=== PATIENT | female | born 1985 | race Caucasian/White ===

== ENCOUNTER 2021-03-11 16:39 | Emergency (ER) | payer OTHER ==
[2021-03-11] MEDS ORDERED: Sodium Chloride 0.9% 1000 ML 1,000 ML IV STA (18:21)
[2021-03-11] MEDS ORDERED: TYLENOL 325 MG PO ONE (18:21)
[2021-03-11] MEDS ORDERED: Zofran 4 MG/2 ML VIAL IV ONE (18:21)
[2021-03-11 18:59] LABS: Hematocrit 42.7 % (35-47); Mean Cell Volume 89.5 fl (78-100); Mean Corpuscular Hemoglobin 29.4 pg (26-32); Mean Corpuscular Hgb Concent. 32.8 g/dl (32-36); Mean Platelet Volume 10.1 fl (7.5-11.0); Platelet Count 281 K/mm3 (150-450); Red Blood Count 4.77 M/mm3 (4.1-5.4); Red Cell Distribution Width 13.4 % (11.5-14.0); White Blood Count 7.8 K/mm3 (4.0-10.5)
[2021-03-11 19:07] LABS: BASOPHIL % 0.5 % (0.0-0.4); Basophil (Absolute #) 0.04 (0-0.4); Eosinophil % 1.8 % (0.00-5.0); Eosinophil (Absolute #) 0.14 (0-0.5); Lymphocyte (Absolute #) 2.17 (1.0-4.6); Monocytes % 6.5 % (0.0-12.0); Neutrophil % 63.2 % (36.0-66.0)
[2021-03-11] MEDS ORDERED: Zofran 4 MG/2 ML VIAL ONE (19:12)
[2021-03-11] MEDS ORDERED: Sodium Chloride 0.9% 1000 ML 1,000 ML ONE (19:13)
[2021-03-11] MEDS ORDERED: TYLENOL 325 MG ONE (19:13)
--- NOTE | 2021-03-11 19:43 | ERPHSYRPT ---
- History of Present Illness Time Seen by Provider: 03/11/21 17:40 Source: patient Exam Limitations: no limitations Patient Subjective Stated Complaint: pt here for not feeling well today with n/v Triage Nursing Assessment: pt alert, resp easy, skin w/d/p. face mask in place, she is able to eat today and drink, abd soft, Physician History: Patient is a 35-year-old female presents to our ED with feeling unwell starting today. 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 Patient states the daughter of a sports management professor tested positive for Covid. In this regard patient believes she may have been exposed to Covid. Patient feels weak. She admits to nausea and vomiting. She denies pain. No diarrhea. No rash. No fever. No shortness of breath. Symptoms are constant. Symptoms are moderate in intensity. No specific worsening improving factors. Patient voices no other complaints or concerns at this time. Timing/Duration: today Severity: moderate Modifying Factors: Improves With: nothing Associated Symptoms: nausea, vomiting Allergies/Adverse Reactions: No Known Drug Allergies Allergy (Unverified 03/11/21 17:32) Home Medications: Empagliflozin [Jardiance] 10 mg PO DAILY 03/11/21 [History] Metformin HCl [Metformin ER Gastric] 1 ea DAILY 03/11/21 [History] Norgestimate-Ethinyl Estradiol [Sprintec 28 Day Tablet] 1 ea DAILY 03/11/21 [History] Simvastatin 1 ea DAILY 03/11/21 [History] Venlafaxine HCl ER 75 mg [Effexor XR 75 MG] 1 ea DAILY 03/11/21 [History] Hx Tetanus, Diphtheria Vaccination/Date Given: No Hx Influenza Vaccination/Date Given: No Hx Pneumococcal Vaccination/Date Given: No Immunizations Up to Date: Yes Travel Risk - International Travel Have you traveled outside of the country in past 3 weeks: No - Coronavirus Screening Are you exhibiting any of the following symptoms?: Yes Symptoms: Vomiting/Diarrhea, Headaches/Body Aches/Fatigue Close contact with a COVID-19 positive Pt in past 14-21 Days: No - Vaccine Status Have you recieved a Covid-19 vaccination: No - Review of Systems Constitutional: No Symptoms, No Fever, No Chills Eyes: No Symptoms Ears, Nose, & Throat: No Symptoms Respiratory: No Symptoms, No Cough, No Dyspnea Cardiac: No Symptoms, No Chest Pain, No Edema, No Syncope Abdominal/Gastrointestinal: No Symptoms, No Abdominal Pain, No Nausea, No Vomiting, No Diarrhea Genitourinary Symptoms: No Symptoms, No Dysuria Musculoskeletal: No Symptoms, No Back Pain, No Neck Pain Skin: No Symptoms, No Rash Neurological: No Symptoms, No Dizziness, No Focal Weakness, No Sensory Changes Psychological: No Symptoms Endocrine: No Symptoms Hematologic/Lymphatic: No Symptoms Immunological/Allergic: No Symptoms All Other Systems: Reviewed and Negative - Social History Smoking Status: Current every day smoker Exposure to second hand smoke: No Patient Lives Alone: No - Female History Hx Last Menstrual Period: feb Hx Now: No - Nursing Vital Signs Nursing Vital Signs: Initial Vital Signs Temperature 97.0 F 03/11/21 17:29 Pulse Rate 83 03/11/21 17:29 Respiratory Rate 18 03/11/21 17:29 Blood Pressure 112/86 03/11/21 17:29 O2 Sat by Pulse Oximetry 96 03/11/21 17:29 Pain Scale Pain Intensity 4 - Physical Exam General Appearance: no apparent distress, alert Eye Exam: PERRL/EOMI, eyes nml inspection Ears, Nose, Throat Exam: normal ENT inspection, TMs normal, pharynx normal, moist mucous membranes Neck Exam: normal inspection, non-tender, supple, full range of motion Respiratory Exam: normal breath sounds, lungs clear, airway intact, No respiratory distress Cardiovascular Exam: regular rate/rhythm, normal heart sounds, normal peripheral pulses Gastrointestinal/Abdomen Exam: soft, normal bowel sounds, No tenderness, No mass Back Exam: normal inspection, normal range of motion, No CVA tenderness, No vertebral tenderness Extremity Exam: normal inspection, normal range of motion, pelvis stable Neurologic Exam: alert, oriented x 3, cooperative, normal mood/affect, nml ce rebellar function, nml station & gait, sensation nml, No motor deficits Skin Exam: normal color, warm, dry, No rash Lymphatic Exam: No adenopathy SpO2 Interpretation: normal SpO2: 96 O2 Delivery: Room Air - Course Nursing assessment & vital signs reviewed: Yes Ordered Tests: Active Orders 24 hr Category Date Time Status IV Insertion STAT Care 03/11/21 18:21 Active CBC W DIFF Stat Lab 03/11/21 18:50 Completed CMP Stat Lab 03/11/21 18:50 Received LIPASE Stat Lab 03/11/21 18:50 Received TROPONIN Q3H Lab 03/11/21 18:50 Received TROPONIN Q3H Lab 03/11/21 21:30 Ordered TROPONIN Q3H Lab 03/12/21 00:30 Ordered TROPONIN Q3H Lab 03/12/21 03:30 Ordered TROPONIN Q3H Lab 03/12/21 06:30 Ordered UA W/RFX UR CULTURE Stat Lab 03/11/21 18:53 Ordered Medication Summary Discontinued Medications Generic Name Dose Route Start Last Admin Trade Name Tru PRN Reason Stop Dose Admin Acetaminophen 975 mg 03/11/21 18:21 03/11/21 19:18 Tylenol 325 Mg PO 03/11/21 18:22 975 mg STAT ONE Administration Acetaminophen Confirm 03/11/21 19:13 Tylenol 325 Mg Administered 03/11/21 19:14 Dose 975 mg .ROUTE .STK-MED ONE Sodium Chloride 1,000 mls @ 999 mls/hr 03/11/21 18:21 03/11/21 19:16 Sodium Chloride 0.9% 1000 Ml IV 03/11/21 19:21 999 mls/hr .Q1H1M STA Administration Sodium Chloride Confirm 03/11/21 19:13 Sodium Chloride 0.9% 1000 Ml Administered 03/11/21 19:14 Dose 1,000 mls @ ud .ROUTE .STK-MED ONE Ondansetron HCl 4 mg 03/11/21 18:21 03/11/21 19:19 Zofran 4 Mg/2 Ml Vial IV 03/11/21 18:22 4 mg STAT ONE Administration Ondansetron HCl Confirm 03/11/21 19:12 Zofran 4 Mg/2 Ml Vial Administered 03/11/21 19:13 Dose 4 mg .ROUTE .STK-MED ONE Lab/Rad Data: Laboratory Result Diagrams 03/11/21 18:50 Laboratory Results 03/11/21 Range/Units 18:50 WBC 7.8 (4.0-10.5) K/mm3 RBC 4.77 (4.1-5.4) M/mm3 Hgb 14.0 (12.0-16.0) gm/dl Hct 42.7 (35-47) % MCV 89.5 (78-100) fl MCH 29.4 (26-32) pg MCHC 32.8 (32-36) g/dl RDW 13.4 (11.5-14.0) % Plt Count 281 (150-450) K/mm3 MPV 10.1 (7.5-11.0) fl Gran % 63.2 (36.0-66.0) % Eos # (Auto) 0.14 (0-0.5) Absolute Lymphs (auto) 2.17 (1.0-4.6) Absolute Monos (auto) 0.50 (0.0-1.3) Total Counted Cancelled Lymphocytes % 28.0 (24.0-44.0) % Monocytes % 6.5 (0.0-12.0) % Eosinophils % 1.8 (0.00-5.0) % Basophils % 0.5 (0.0-0.4) % Absolute Granulocytes 4.90 (1.4-6.9) Absolute Neutrophils Cancelled Segmented Neutrophils Cancelled Band Neutrophils Cancelled Lymphocytes (Manual) Cancelled Monocytes (Manual) Cancelled Eosinophils (Manual) Cancelled Basophils (Manual) Cancelled Basophils # 0.04 (0-0.4) Metamyelocytes Cancelled Myelocytes Cancelled Promyelocytes Cancelled Nucleated RBCs Cancelled Hypersegmented Polys Cancelled Atypical Lymphocytes Cancelled Blast Cells Cancelled Plasma Cells Cancelled Other Cell Type Cancelled Hypochromia Cancelled Toxic Granulation Cancelled Dohle Bodies Cancelled Eyal Rods Cancelled Platelet Estimate Cancelled RBC Morphology Cancelled Polychromasia Cancelled Poikilocytosis Cancelled Basophilic Stippling Cancelled Anisocytosis Cancelled Microcytosis Cancelled Macrocytosis Cancelled Spherocytes Cancelled Sickle Cells Cancelled Target Cells Cancelled Tear Drop Cells Cancelled Ovalocytes Cancelled Stomatocytes Cancelled Helmet Cells Cancelled [place] Bodies Cancelled [place] Rings Cancelled Tory Cells Cancelled Acanthocytes (Spur) Cancelled Rouleaux Cancelled Schistocytes Cancelled Morphology Comment Cancelled - Progress Progress: improved Progress Note: Patient reassessed. She feels much better. CBC within normal limits. Lipase within normal limits. Patient no longer nauseous. Patient states she is ready for discharge. No imaging studies indicated during this visit. Patient tolerated p.o. Portions of this note were created with voice recognition technology. There may be grammatical, spelling, punctuation or sound alike errors 03/11/21 19:44 03/11/21 19:46 Outpatient Covid test ordered. Counseled pt/family regarding: lab results, diagnosis, need for follow-up - Departure Departure Disposition: Home Clinical Impression: Nausea and vomiting, Exposure to COVID-19 virus Condition: Stable Critical Care Time: No Referrals: DOCTOR,NO FAMILY [Primary Care Provider] - FELISHA GALLOWAY MD [ACTIVE STAFF] - Additional Instructions: Discharge/Care Plan LANETTE GARZA was seen on 03/11/21 in the Emergency Room. The patient was counseled regarding Diagnosis,Lab results, Imaging studies, need for follow up and when to return to the Emergency Room. Prescriptions given: Discharge Note I have spoken with the patient and/or caregivers. I have explained the patient's condition, diagnosis and treatment plan based on the information available to me at this time. I have answered the patient's and/or caregiver's questions and addressed any concerns. The patient and/or caregivers have as good understanding of the patient's diagnosis, condition and treatment plan as can be expected at this point. The vital signs have been stable. The patient's condition is stable and appropriate for discharge from the emergency department. The patient will pursue further outpatient evaluation with the primary care physician or other designated or consulting physician as outlined in the discharge instructions. The patient and/or caregivers are agreeable to this plan of care and follow-up instructions have been explained in detail. The patient and/or caregivers have received these instruction. The patient/and or caregivers are aware that any significant change in condition or worsening of symptoms should prompt an immediate return to this or the closest emergency department or call 911.
[2021-03-11 19:44] LABS: ALBUMIN 4.1 g/dL (3.5-5.0); ALKALINE PHOSPHATASE 73 U/L (38-126); ANION GAP 15.2 MEQ/L (5-15); BLOOD UREA NITROGEN 24 mg/dL (7-17); CHLORIDE 103 mmol/L (98-107); Calcium 8.8 mg/dL (8.4-10.2); Carbon Dioxide 26 mmol/L (22-30); EST GLOMERULAR FILTRATION RATE > 60.0 ML/MIN; Glucose 143 mg/dL (74-106); LIPASE 44 U/L (23-300); SGOT/AST 21 U/L (14-36); SGPT/ALT 23 U/L (0-35); SODIUM 140 mmol/L (137-145)
[2021-03-11 20:01] LABS: Appearance SLIGHTLY CLOUDY (CLEAR); Bilirubin NEGATIVE (NEGATIVE); Blood NEGATIVE Ery/ul (0-5); Epithelial Cells FEW /HPF (FEW); Glucose >=500 mg/dL (NEGATIVE); Ketones NEGATIVE (NEGATIVE); Leukocyte Esterase MODERATE (NEGATIVE); Nitrite NEGATIVE (NEGATIVE); Protein,Urine Dip NEGATIVE (Negative); RBC 0-2 /HPF (0-2); Specific Gravity 1.032 (1.005-1.025); Urobilinogen NEGATIVE mg/dL (0-1)
[2021-03-11 20:06] LABS: Bacteria NONE SEEN /HPF (NEGATIVE)
[2021-03-11 20:13] VITALS: BP 105/59; PULSE 95
[2021-03-11 22:56] VITALS: O2SAT 96
== END 2021-03-11 20:32 | disposition home or self-care (01) ==
LOC: ED 16:39
DX: R11.2 Nausea with vomiting, unspecified (principal); Z20.822 Contact with and (suspected) exposure to COVID-19
CPT/HCPCS: 36000; 36415; 80053; 81001; 83690; 84484; 85025; 96374; 99284; U0003; J2405; A9270-GY

== ENCOUNTER 2021-06-10 07:36 | Emergency (ER) | payer OTHER ==
[2021-06-10] MEDS ORDERED: Sodium Chloride 0.9% 1000 ML 1,000 ML IV STA (07:57)
[2021-06-10] MEDS ORDERED: Adacel Vial IM ONE ×2 (07:58→08:37)
[2021-06-10 08:11] VITALS: O2SAT 98
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
[2021-06-10 09:25] VITALS: BP 112/82; PULSE 78
== END 2021-06-10 09:26 | disposition home or self-care (01) ==
LOC: ED 07:36
DX: S01.03XA Puncture wound without foreign body of scalp, initial encounter (principal); V48.5XXA Car driver injured in noncollision transport accident in traffic accident, initial encounter; R51.9 Headache, unspecified; Z79.84 Long term (current) use of oral hypoglycemic drugs; Z72.0 Tobacco use; Z79.899 Other long term (current) drug therapy
CPT/HCPCS: 70450; 71045; 72125; 90471; 90715; 99285

== ENCOUNTER 2021-07-28 12:31 | Emergency (ER) | payer OTHER ==
[2021-07-28] MEDS ORDERED: Zofran 4 MG/2 ML VIAL IV ONE (12:51)
--- NOTE | 2021-07-28 12:51 | ERPHSYRPT ---
- History of Present Illness Time Seen by Provider: 07/28/21 12:46 Historian: patient Exam Limitations: no limitations Physician History: This is an overweight 35-year-old white female who presents with 1 week history of intermittent abdominal pain with associated nausea. Patient is an amh-upzmblz-txqwzwztr diabetic. She has tried to modify her diet to remove fatty greasy spicy foods and it may have helped a little bit. Her pain is in the mid abdomen and it is bilateral. It does not radiate anywhere else. She has no urinary symptoms. She is had no abnormal vaginal discharge. She has taken tests and they are negative. She has not had vomiting or diarrhea. She has no shortness of breath. She has no chest pain. Her only abdominal surgery was that of a section. Timing/Duration: week(s) (1) Quality: aching, cramping Abdominal Pain Onset Location: other (Mid abdomen bilateral) Pain Radiation: no radiation Severity of Pain-Max: moderate Severity of Pain-Current: mild Modifying Factors: Improves With: nothing Associated Symptoms: nausea, No chest pain, No shortness of breath, No vomiting Previous symptoms: same symptoms as today Allergies/Adverse Reactions: nickel Allergy (Verified 07/28/21 12:51) Home Medications: Metformin HCl [Metformin ER Gastric] 1 ea PO BID 03/11/21 [History] Hx Tetanus, Diphtheria Vaccination/Date Given: No Hx Influenza Vaccination/Date Given: No Hx Pneumococcal Vaccination/Date Given: No Travel Risk - International Travel Have you traveled outside of the country in past 3 weeks: No - Coronavirus Screening Are you exhibiting any of the following symptoms?: No Close contact with a COVID-19 positive Pt in past 14-21 Days: No - Vaccine Status Have you recieved a Covid-19 vaccination: No - Review of Systems Constitutional: No Symptoms Eyes: No Symptoms Ears, Nose, & Throat: No Symptoms Respiratory: No Symptoms Cardiac: No Symptoms Abdominal/Gastrointestinal: Abdominal Pain, Nausea, No Vomiting, No Diarrhea, No Constipation Genitourinary Symptoms: No Symptoms Musculoskeletal: No Symptoms Skin: No Symptoms Neurological: No Symptoms Psychological: No Symptoms Endocrine: No Symptoms Hematologic/Lymphatic: No Symptoms Immunological/Allergic: No Symptoms All Other Systems: Reviewed and Negative - Past Medical History Pertinent Past Medical History: No Neurological History: No Pertinent History ENT History: No Pertinent History Cardiac History: No Pertinent History Respiratory History: No Pertinent History Endocrine Medical History: No Pertinent History Musculoskeletal History: No Pertinent History GI Medical History: No Pertinent History History: No Pertinent History Psycho-Social History: No Pertinent History Female Reproductive Disorders: No Pertinent History - Past Surgical History Past Surgical History: No Neuro Surgical History: No Pertinent History Cardiac: No Pertinent History Respiratory: No Pertinent History Gastrointestinal: No Pertinent History Genitourinary: No Pertinent History Musculoskeletal: No Pertinent History Female Surgical History: No Pertinent History - Social History Smoking Status: Current every day smoker How long have you smoked: 1 Exposure to second hand smoke: No Drug Use: none Patient Lives Alone: No - Nursing Vital Signs Nursing Vital Signs: Initial Vital Signs Temperature 97.3 F 07/28/21 12:37 Pulse Rate 71 07/28/21 12:37 Blood Pressure 144/90 07/28/21 12:37 O2 Sat by Pulse Oximetry 97 07/28/21 12:37 Pain Scale Pain Intensity 5 - Physical Exam General Appearance: no apparent distress, alert, anxiety Eye Exam: PERRL/EOMI, eyes nml inspection Ears, Nose, Throat Exam: normal ENT inspection, moist mucous membranes Neck Exam: normal inspection, non-tender, supple, full range of motion Respiratory Exam: normal breath sounds, lungs clear, airway intact, No chest tenderness, No respiratory distress Cardiovascular Exam: regular rate/rhythm, normal heart sounds, normal peripheral pulses Gastrointestinal/Abdomen Exam: soft, normal bowel sounds, tenderness (Bilateral mid abdomen), guarding, No rebound Pelvic Exam: not done Rectal Exam: not done Back Exam: normal inspection, normal range of motion, No CVA tenderness, No vertebral tenderness Extremity Exam: normal inspection, normal range of motion, pelvis stable Neurologic Exam: alert, oriented x 3, cooperative, feeder tender II-XII nml as tested, normal mood/affect, nml cerebellar function, nml station & gait, sensation nml Skin Exam: normal color, warm, dry Lymphatic Exam: No adenopathy SpO2 Interpretation: normal O2 Delivery: Room Air - Course Nursing assessment & vital signs reviewed: Yes Ordered Tests: Active Orders 24 hr Category Date Time Status IV Insertion STAT Care 07/28/21 12:51 Active ABDOMEN AND PELVIS W/0 CONTRAS [CT] Stat Exams 07/28/21 12:51 Completed AMYLASE Stat Lab 07/28/21 13:00 Completed CBC W DIFF Stat Lab 07/28/21 13:00 Completed CMP Stat Lab 07/28/21 13:00 Completed CULTURE,URINE Stat Lab 07/28/21 12:53 Received HCG,QUALITATIVE URINE Stat Lab 07/28/21 12:53 Completed LIPASE Stat Lab 07/28/21 13:00 Completed Lactic Acid Stat Lab 07/28/21 12:51 Completed UA W/RFX UR CULTURE Stat Lab 07/28/21 12:53 Completed Medication Summary Generic Name Dose Route Start Last Admin Trade Name Freq PRN Reason Stop Dose Admin Ceftriaxone Sodium/Dextrose 1 g in 50 mls @ 100 mls/hr 07/28/21 13:42 07/28/21 13:54 Rocephin 1 Gm-D5w 50 Ml Bag IV 07/28/21 14:11 100 ml/hr STAT STA 100 mls/hr Administration Sodium Chloride 500 mls @ 500 mls/hr 07/28/21 13:42 07/28/21 13:53 Sodium Chloride 0.9% 500 Ml IV 07/28/21 14:41 500 mls/hr .Q1H ONE Administration Discontinued Medications Generic Name Dose Route Start Last Admin Trade Name Freq PRN Reason Stop Dose Admin Ceftriaxone Sodium/Dextrose Confirm 07/28/21 13:47 Rocephin 1 Gm-D5w 50 Ml Bag Administered 07/28/21 13:48 Dose 1 g in 50 mls @ ud IV .STK-MED ONE Sodium Chloride Confirm 07/28/21 13:48 Sodium Chloride 0.9% 500 Ml Administered 07/28/21 13:49 Dose 500 mls @ ud IV .STK-MED ONE Ondansetron HCl 4 mg 07/28/21 12:51 07/28/21 13:03 Ondansetron Hcl 4 Mg/2 Ml Vial IV 07/28/21 12:52 4 mg STAT ONE Administration Ondansetron HCl Confirm 07/28/21 13:02 Ondansetron Hcl 4 Mg/2 Ml Vial Administered 07/28/21 13:03 Dose 4 mg .ROUTE .STK-MED ONE Lab/Rad Data: Laboratory Result Diagrams 07/28/21 13:00 07/28/21 13:00 Laboratory Results 07/28/21 07/28/21 07/28/21 Range/Units 13:00 13:00 12:53 WBC 8.1 (4.0-10.5) K/mm3 RBC 4.78 (4.1-5.4) M/mm3 Hgb 13.8 (12.0-16.0) gm/dl Hct 40.2 (35-47) % MCV 84.1 (78-100) fl MCH 28.9 (26-32) pg MCHC 34.3 (32-36) g/dl RDW 12.9 (11.5-14.0) % Plt Count 296 (150-450) K/mm3 MPV 10.2 (7.5-11.0) fl Gran % 58.9 (36.0-66.0) % Eos # (Auto) 0.15 (0-0.5) Absolute Lymphs (auto) 2.49 (1.0-4.6) Absolute Monos (auto) 0.65 (0.0-1.3) Lymphocytes % 30.8 (24.0-44.0) % Monocytes % 8.0 (0.0-12.0) % Eosinophils % 1.9 (0.00-5.0) % Basophils % 0.4 (0.0-0.4) % Absolute Granulocytes 4.76 (1.4-6.9) Basophils # 0.03 (0-0.4) Sodium 139 (137-145) mmol/L Potassium 4.2 (3.5-5.1) mmol/L Chloride 102 (98-107) mmol/L Carbon Dioxide 25 (22-30) mmol/L Anion Gap 16.0 H (5-15) MEQ/L BUN 17 (7-17) mg/dL Creatinine 0.56 (0.52-1.04) mg/dL Estimated GFR > 60.0 ML/MIN Glucose 176 H (74-106) mg/dL Lactic Acid (0.4-2.0) Calcium 9.9 (8.4-10.2) mg/dL Total Bilirubin 0.50 (0.2-1.3) mg/dL AST 22 (14-36) U/L ALT 31 (0-35) U/L Alkaline Phosphatase 76 (38-126) U/L Serum Total Protein 7.5 (6.3-8.2) g/dL Albumin 4.7 (3.5-5.0) g/dL Amylase 50 (30-110) U/L Lipase 57 (23-300) U/L Urine Color (YELLOW) Urine Appearance (CLEAR) Urine pH (5-6) Ur Specific [place] (1.005-1.025) Urine Protein (Negative) Urine Ketones (NEGATIVE) Urine Blood (0-5) Omari/ul Urine Nitrite (NEGATIVE) Urine Bilirubin (NEGATIVE) Urine Urobilinogen (0-1) mg/dL Ur Leukocyte Esterase (NEGATIVE) Urine WBC (Auto) (0-5) /HPF Urine RBC (Auto) (0-2) /HPF U Epithel Cells (Auto) (FEW) /HPF Urine Bacteria (Auto) (NEGATIVE) /HPF Urine Mucus (Auto) (NEGATIVE) /HPF Urine Culture Reflexed (NO) Urine Glucose (NEGATIVE) mg/dL Urine HCG, Qual NEGATIVE (Negative) 07/28/21 07/28/21 Range/Units 12:53 12:51 WBC (4.0-10.5) K/mm3 RBC (4.1-5.4) M/mm3 Hgb (12.0-16.0) gm/dl Hct (35-47) % MCV (78-100) fl MCH (26-32) pg MCHC (32-36) g/dl RDW (11.5-14.0) % Plt Count (150-450) K/mm3 MPV (7.5-11.0) fl Gran % (36.0-66.0) % Eos # (Auto) (0-0.5) Absolute Lymphs (auto) (1.0-4.6) Absolute Monos (auto) (0.0-1.3) Lymphocytes % (24.0-44.0) % Monocytes % (0.0-12.0) % Eosinophils % (0.00-5.0) % Basophils % (0.0-0.4) % Absolute Granulocytes (1.4-6.9) Basophils # (0-0.4) Sodium (137-145) mmol/L Potassium (3.5-5.1) mmol/L Chloride (98-107) mmol/L Carbon Dioxide (22-30) mmol/L Anion Gap (5-15) MEQ/L BUN (7-17) mg/dL Creatinine (0.52-1.04) mg/dL Estimated GFR ML/MIN Glucose (74-106) mg/dL Lactic Acid 2.4 H (0.4-2.0) Calcium (8.4-10.2) mg/dL Total Bilirubin (0.2-1.3) mg/dL AST (14-36) U/L ALT (0-35) U/L Alkaline Phosphatase (38-126) U/L Serum Total Protein (6.3-8.2) g/dL Albumin (3.5-5.0) g/dL Amylase (30-110) U/L Lipase (23-300) U/L Urine Color YELLOW (YELLOW) Urine Appearance CLOUDY (CLEAR) Urine pH 5.0 (5-6) Ur Specific [place] 1.033 (1.005-1.025) Urine Protein 100 (Negative) Urine Ketones SMALL (NEGATIVE) Urine Blood NEGATIVE (0-5) Omari/ul Urine Nitrite NEGATIVE (NEGATIVE) Urine Bilirubin NEGATIVE (NEGATIVE) Urine Urobilinogen 2 (0-1) mg/dL Ur Leukocyte Esterase TRACE (NEGATIVE) Urine WBC (Auto) 6-10 (0-5) /HPF Urine RBC (Auto) 0-2 (0-2) /HPF U Epithel Cells (Auto) FEW (FEW) /HPF Urine Bacteria (Auto) RARE (NEGATIVE) /HPF Urine Mucus (Auto) SLIGHT (NEGATIVE) /HPF Urine Culture Reflexed YES (NO) Urine Glucose 50 (NEGATIVE) mg/dL Urine HCG, Qual (Negative) - Progress Progress: improved Progress Note: 07/28/21 14:00 CAT scan of the abdomen and pelvis without contrast shows indeterminate subce ntimeter noncalcified nodules bilateral lung bases. Chest follow-up per Fleischner guidelines. I discussed with the patient regarding the need to follow-up on these nodules in the lung. This was discussed in detail with the patient. Counseled pt/family regarding: lab results, diagnosis, need for follow-up, rad results - Departure Departure Disposition: Home Clinical Impression: Abdominal pain, UTI (urinary tract infection), Lung nodules Condition: Stable Critical Care Time: No Referrals: SOLOMON DENG MD [Primary Care Provider] - Follow up/PCP as directed Additional Instructions: Back off your diet to a clear liquid then slowly advanced over 24 hours to a nonfat, nongreasy, nonspicy diet. Follow-up with your primary care doctor for further evaluation and management. Prescriptions: Ondansetron ODT 4 MG [Zofran Odt 4 mg] 4 mg PO Q6H PRN PRN #10 tablet PRN Reason: Vomiting Ciprofloxacin [Cipro 500 MG] 500 mg PO BID #14 tablet
[2021-07-28] MEDS ORDERED: Zofran 4 MG/2 ML VIAL ONE (13:02)
[2021-07-28 13:10] LABS: Absolute Neutrophil Ct (ANC) 4.76 (1.4-6.9); Basophil (Absolute #) 0.03 (0-0.4); Eosinophil % 1.9 % (0.00-5.0); Eosinophil (Absolute #) 0.15 (0-0.5); Hematocrit 40.2 % (35-47); Hemoglobin 13.8 gm/dl (12.0-16.0); Lymphocyte (Absolute #) 2.49 (1.0-4.6); Lymphocytes % 30.8 % (24.0-44.0); Mean Cell Volume 84.1 fl (78-100); Mean Corpuscular Hemoglobin 28.9 pg (26-32); Mean Corpuscular Hgb Concent. 34.3 g/dl (32-36); Mean Platelet Volume 10.2 fl (7.5-11.0); Monocyte (Absolute #) 0.65 (0.0-1.3); Neutrophil % 58.9 % (36.0-66.0); Platelet Count 296 K/mm3 (150-450); Red Blood Count 4.78 M/mm3 (4.1-5.4); Red Cell Distribution Width 12.9 % (11.5-14.0); White Blood Count 8.1 K/mm3 (4.0-10.5)
[2021-07-28 13:13] LABS: Appearance CLOUDY (CLEAR); Bacteria RARE /HPF (NEGATIVE); Bilirubin NEGATIVE (NEGATIVE); Blood NEGATIVE Ery/ul (0-5); Epithelial Cells FEW /HPF (FEW); Glucose 50 mg/dL (NEGATIVE); Ketones SMALL (NEGATIVE); Leukocyte Esterase TRACE (NEGATIVE); Mucus SLIGHT /HPF (NEGATIVE); Nitrite NEGATIVE (NEGATIVE); Protein,Urine Dip 100 (Negative); RBC 0-2 /HPF (0-2); Specific Gravity 1.033 (1.005-1.025); Urobilinogen 2 mg/dL (0-1)
[2021-07-28 13:36] LABS: ALBUMIN 4.7 g/dL (3.5-5.0); ALKALINE PHOSPHATASE 76 U/L (38-126); AMYLASE 50 U/L (30-110); BLOOD UREA NITROGEN 17 mg/dL (7-17); CHLORIDE 102 mmol/L (98-107); Calcium 9.9 mg/dL (8.4-10.2); Carbon Dioxide 25 mmol/L (22-30); Creatinine 1 0.56 mg/dL (0.52-1.04); EST GLOMERULAR FILTRATION RATE > 60.0 ML/MIN; Glucose 176 mg/dL (74-106); LIPASE 57 U/L (23-300); Potassium 4.2 mmol/L (3.5-5.1); SGOT/AST 22 U/L (14-36); SGPT/ALT 31 U/L (0-35); SODIUM 139 mmol/L (137-145); Total Protein 7.5 g/dL (6.3-8.2)
[2021-07-28] MEDS ORDERED: Sodium Chloride 0.9% 500 ML 500 ML IV ONE ×2 (13:42→13:48)
[2021-07-28] MEDS ORDERED: ROCEPHIN 1 Gm-D5w 50 ml Bag** 1 G/50 ML IVPB IV STA (13:42)
[2021-07-28] MEDS ORDERED: ROCEPHIN 1 Gm-D5w 50 ml Bag** 1 G/50 ML IVPB IV ONE (13:47)
--- NOTE | 2021-07-28 13:55 | XRAY ---
Indication: Abdomen pain, nausea, and constipation. Multiple contiguous images obtained through the abdomen and pelvis without contrast. Comparison: None Lung bases demonstrates a 7 mm right costophrenic angle and 8mm left lower lobe subpleural noncalcified nodules, both indeterminant. No infiltrate or effusion. Heart not enlarged. Stomach is distended with food/fluid. Noncontrasted stomach and bowel loops appear nonobstructed with normal appendix. There is mild diffuse scattered colonic fecal debris throughout. No free fluid/air. Remaining liver, gallbladder, pancreas, spleen, adrenal glands, kidneys, ureters, latter, ureters, and aorta are unremarkable for noncontrast exam. Osseous structures intact. No ventral or inguinal hernias. Impression: 1. Mild diffuse fecal stasis. 2. Indeterminant subcentimeter noncalcified nodules in both lung bases. Outside comparison studies recommended if available. If not, baseline CT chest recommended with follow-up per Fleischner guidelines. 3. Remaining CT abdomen/pelvis without contrast exam is negative.
[2021-07-28 14:05] VITALS: BP 142/80; PULSE 66; O2SAT 99
== END 2021-07-28 15:04 | disposition home or self-care (01) ==
LOC: ED 12:31
DX: R10.84 Generalized abdominal pain (principal); N39.0 Urinary tract infection, site not specified; R91.8 Other nonspecific abnormal finding of lung field; R11.0 Nausea; E11.9 Type 2 diabetes mellitus without complications; Z79.84 Long term (current) use of oral hypoglycemic drugs; Z72.0 Tobacco use
CPT/HCPCS: 36000; 36415; 74176; 80053; 81001; 82150; 83605; 83690; 84703; 85025; 87086; 96365; 96374; 99284; J0696; J2405

== ENCOUNTER 2022-01-24 11:36 | Emergency (ER) | payer OTHER ==
[2022-01-24 12:24] LABS: Absolute Neutrophil Ct (ANC) 5.69 x10^3/uL (1.4-6.9); Basophil (Absolute #) 0.03 x10^3/uL (0-0.4); Eosinophil % 0.5 % (0.00-5.0); Eosinophil (Absolute #) 0.04 x10^3/uL (0-0.5); Hematocrit 41.8 % (35-47); Hemoglobin 13.8 g/dL (12.0-16.0); Lymphocyte (Absolute #) 1.49 x10^3/uL (1.0-4.6); Lymphocytes % 19.5 % (24.0-44.0); Mean Cell Volume 86.4 fL (78-100); Mean Corpuscular Hemoglobin 28.5 pg (26-32); Mean Platelet Volume 9.7 fL (7.5-11.0); Monocyte (Absolute #) 0.37 x10^3/uL (0.0-1.3); Monocytes % 4.8 % (0.0-12.0); Neutrophil % 74.5 % (36.0-66.0); Platelet Count 262 x10^3/uL (150-450); Red Blood Count 4.84 x10^6/uL (4.1-5.4); White Blood Count 7.6 x10^3/uL (4.0-10.5)
[2022-01-24 12:28] LABS: Appearance CLEAR (CLEAR); Bilirubin NEGATIVE (NEGATIVE); Dipstick done @ ? MAIN LAB; Glucose >=1000 mg/dL (NEGATIVE); Ketones TRACE (NEGATIVE); Nitrite NEGATIVE (NEGATIVE); Ph 5.5 (5-6); Protein,Urine Dip NEGATIVE (Negative); RBC TRACE-INTACT Ery/ul (0-5); Specific Gravity <=1.005 (1.005-1.025); Urobilinogen 0.2 mg/dL (0-1)
[2022-01-24 12:33] LABS: Epithelial Cells RARE /HPF (FEW)
[2022-01-24 12:34] LABS: Urine Cultured Indicated? NO
[2022-01-24 12:46] LABS: ALBUMIN 4.6 g/dL (3.5-5.0); ALKALINE PHOSPHATASE 64 U/L (38-126); ANION GAP 14.2 MEQ/L (5-15); BLOOD UREA NITROGEN 22 mg/dL (7-17); CHLORIDE 102 mmol/L (98-107); Calcium 9.7 mg/dL (8.4-10.2); Carbon Dioxide 25 mmol/L (22-30); EST GLOMERULAR FILTRATION RATE > 60.0 ML/MIN; Glucose 182 mg/dL (74-106); LIPASE 46 U/L (23-300); Potassium 4.3 mmol/L (3.5-5.1); SGOT/AST 20 U/L (14-36); SGPT/ALT 16 U/L (0-35); SODIUM 136 mmol/L (137-145); Total Protein 7.6 g/dL (6.3-8.2)
[2022-01-24 12:59] LABS: INFLUENZA A NEGATIVE (NEGATIVE); INFLUENZA B NEGATIVE (NEGATIVE); RESPIRATORY SYNCTIAL VIRUS NEGATIVE (Negative); SARS-CoV-2 Xpert Express NEGATIVE (NEGATIVE)
--- NOTE | 2022-01-24 13:03 | ERPHSYRPT ---
- History of Present Illness Time Seen by Provider: 01/24/22 11:42 Historian: patient Exam Limitations: no limitations Patient Subjective Stated Complaint: PT states "For the past few days I have not been feeling well, I am constipated and there is blood in my urine and my head hurts and my body hurts and I need a dr note because I called in and it has been rough." Triage Nursing Assessment: Pt presented alert and oriented X 3, skin pwd. Pt amb ulates with an upright steady gait, able to speak in clear full sentences. PT in no apaprent respiratory distress. Physician History: Abdominal pain since Monday -Patient reports that pain is about a 4/10, intermittent, increases with turning to the, located in the nuvia-umbilical region, relieved with ibuprofen, nonradiating. -Patient thinks that she may be constipated, that she has tried MiraLAX this morning without much help. -Reports noticing blood in urine x 1 yesterday -Denies prior history of kidney stone -Patient also endorses a headache since Monday. This is not the worst headache of her life. Denies any trouble with her vision. -Patient denies any fever/cough/runny nose/discharge -LMP was first week of this month. Patient is requesting a test. -Is also known diabetic which is uncontrolled on metformin- last A1c 4 mo ago - Timing/Duration: day(s) (3) Activities at Onset: none Quality: aching Abdominal Pain Onset Location: periumbilical Pain Radiation: no radiation Severity of Pain-Max: mild Severity of Pain-Current: mild Modifying Factors: Improves With: movement Associated Symptoms: headache, No back, No diarrhea, No fever/chills, No heartburn, No shortness of breath, No vomiting Previous symptoms: no prior history Allergies/Adverse Reactions: nickel Allergy (Verified 07/28/21 12:51) amoxicillin Adverse Reaction (Severe, Verified 01/24/22 11:48) nausea and severe vomiting Home Medications: Metformin HCl [Metformin ER Gastric] 1 ea PO BID 03/11/21 [History] Divalproex Sodium 500 mg PO DAILY 01/24/22 [History] Empagliflozin [Jardiance] 10 mg PO DAILY 01/24/22 [History] Simvastatin 40 mg PO DAILY 01/24/22 [History] Hx Tetanus, Diphtheria Vaccination/Date Given: No Hx Influenza Vaccination/Date Given: No Hx Pneumococcal Vaccination/Date Given: No Immunizations Up to Date: Yes Travel Risk - International Travel Have you traveled outside of the country in past 3 weeks: No - Coronavirus Screening Are you exhibiting any of the following symptoms?: Yes Symptoms: Headaches/Body Aches/Fatigue - Vaccine Status Have you recieved a Covid-19 vaccination: No - Review of Systems Constitutional: No Symptoms, No Fever, No Chills, No Fatigue Eyes: No Symptoms, No Discharge, No Eye Pain, No Vision Changes, No Double Vision Ears, Nose, & Throat: No Symptoms, No Ear Pain, No Nose Congestion, No Sinus Drainage, No Throat Pain Respiratory: No Symptoms, No Cough, No Dyspnea, No Dyspnea on Exertion (ROBLERO), No Wheezing Cardiac: No Symptoms, No Chest Pain, No Palpitations, No Syncope Abdominal/Gastrointestinal: Abdominal Pain, Constipation, No Nausea, No Vomiting, No Hematemesis, No Hematochezia, No Melena, No Dysphagia Genitourinary Symptoms: Hematuria, No Dysuria, No Frequency, No Vaginal Bleeding, No Vaginal Discharge Musculoskeletal: No Symptoms, No Arthralgias, No Back Pain Skin: No Symptoms, No Cellulitis, No Rash Neurological: No Symptoms, Headache, No Dizziness, No Focal Weakness, No Gait Changes, No Speech Changes Psychological: No Symptoms, No Alcohol Abuse Endocrine: No Symptoms, No Polyuria, No Polydipsia Hematologic/Lymphatic: No Symptoms Immunological/Allergic: No Symptoms All Other Systems: Reviewed and Negative - Past Medical History Pertinent Past Medical History: No Neurological History: No Pertinent History ENT History: No Pertinent History Cardiac History: No Pertinent History Respiratory History: No Pertinent History Endocrine Medical History: No Pertinent History Musculoskeletal History: No Pertinent History GI Medical History: No Pertinent History History: No Pertinent History Psycho-Social History: No Pertinent History Female Reproductive Disorders: No Pertinent History - Past Surgical History Past Surgical History: No Neuro Surgical History: No Pertinent History Cardiac: No Pertinent History Respiratory: No Pertinent History Gastrointestinal: No Pertinent History Genitourinary: No Pertinent History Musculoskeletal: No Pertinent History Female Surgical History: No Pertinent History - Social History Smoking Status: Current every day smoker How long have you smoked: 1 Exposure to second hand smoke: No Drug Use: none Patient Lives Alone: No - Female History Hx Last Menstrual Period: 01/04/2022 Hx Now: (unknown) - Nursing Vital Signs Nursing Vital Signs: Initial Vital Signs Temperature 97.0 F 01/24/22 11:38 Pulse Rate 77 01/24/22 11:38 Respiratory Rate 20 01/24/22 11:38 Blood Pressure 117/83 01/24/22 11:38 O2 Sat by Pulse Oximetry 98 01/24/22 11:38 Pain Scale Pain Intensity 2 - Physical Exam General Appearance: no apparent distress Eye Exam: PERRL/EOMI, eyes nml inspection, No scleral icterus Ears, Nose, Throat Exam: normal ENT inspection, TMs normal, pharynx normal Neck Exam: normal inspection, non-tender, supple, full range of motion Respiratory Exam: normal breath sounds, lungs clear, No chest tenderness, No respiratory distress Cardiovascular Exam: regular rate/rhythm, normal heart sounds, normal peripheral pulses Gastrointestinal/Abdomen Exam: soft, tenderness (nuvia-umbilical), No distention, No mass, No guarding, No pulsatile mass, No rebound, No hepatomegaly, No organomegaly Pelvic Exam: deferred Rectal Exam: deferred Back Exam: normal inspection, No CVA tenderness Extremity Exam: normal inspection, normal range of motion Neurologic Exam: alert, oriented x 3, cooperative Skin Exam: normal color, warm, No rash Lymphatic Exam: No adenopathy SpO2 Interpretation: normal SpO2: 97 O2 Delivery: Room Air Lab/Rad Data: Laboratory Result Diagrams 01/24/22 12:15 01/24/22 12:15 Laboratory Results 01/24/22 01/24/22 01/24/22 Range/Units 12:15 12:15 12:15 WBC (4.0-10.5) x10^3/uL RBC (4.1-5.4) x10^6/uL Hgb (12.0-16.0) g/dL Hct (35-47) % MCV (78-100) fL MCH (26-32) pg MCHC (32-36) g/dL RDW (11.5-14.0) % Plt Count (150-450) x10^3/uL MPV (7.5-11.0) fL Gran % (36.0-66.0) % Immature Gran % (Auto) (0.00-0.4) % Nucleat RBC Rel Count (0.00-0.1) % Eos # (Auto) (0-0.5) x10^3/uL Immature Gran # (Auto) (0.00-0.03) x10^3u/L Absolute Lymphs (auto) (1.0-4.6) x10^3/uL Absolute Monos (auto) (0.0-1.3) x10^3/uL Absolute Nucleated RBC (0.00-0.01) x10^3u/L Lymphocytes % (24.0-44.0) % Monocytes % (0.0-12.0) % Eosinophils % (0.00-5.0) % Basophils % (0.0-0.4) % Absolute Granulocytes (1.4-6.9) x10^3/uL Basophils # (0-0.4) x10^3/uL Sodium 136 L (137-145) mmol/L Potassium 4.3 (3.5-5.1) mmol/L Chloride 102 (98-107) mmol/L Carbon Dioxide 25 (22-30) mmol/L Anion Gap 14.2 (5-15) MEQ/L BUN 22 H (7-17) mg/dL Creatinine 0.50 L (0.52-1.04) mg/dL Estimated GFR > 60.0 ML/MIN Glucose 182 H (74-106) mg/dL Calcium 9.7 (8.4-10.2) mg/dL Total Bilirubin 0.50 (0.2-1.3) mg/dL AST 20 (14-36) U/L ALT 16 (0-35) U/L Alkaline Phosphatase 64 (38-126) U/L Serum Total Protein 7.6 (6.3-8.2) g/dL Albumin 4.6 (3.5-5.0) g/dL Lipase 46 (23-300) U/L Serum , Qual NEGATIVE (Negative) Urinalys Dipstick Clnc Urine Color (YELLOW) Urine Appearance (CLEAR) Urine pH (5-6) Ur Specific [place] (1.005-1.025) POC Urine Protein Conf (Negative) Urine Ketones (NEGATIVE) Urine Nitrite (NEGATIVE) Urine Bilirubin (NEGATIVE) Urine Urobilinogen (0-1) mg/dL Urine Leukocytes (NEGATIVE) Urine WBC (Auto) (0-5) /HPF Urine RBC (Auto) (0-2) /HPF U Epithel Cells (Auto) (FEW) /HPF Urine Bacteria (Auto) (NEGATIVE) /HPF Urine RBC (0-5) Omari/ul Ur Culture Indicated? Urine Glucose (NEGATIVE) mg/dL Influenza Type A Ag NEGATIVE (NEGATIVE) Influenza Type B Ag NEGATIVE (NEGATIVE) RSV (PCR) NEGATIVE (Negative) SARS-CoV-2 (PCR) NEGATIVE (NEGATIVE) 01/24/22 01/24/22 Range/Units 12:15 12:03 WBC 7.6 (4.0-10.5) x10^3/uL RBC 4.84 (4.1-5.4) x10^6/uL Hgb 13.8 (12.0-16.0) g/dL Hct 41.8 (35-47) % MCV 86.4 (78-100) fL MCH 28.5 (26-32) pg MCHC 33.0 (32-36) g/dL RDW 12.0 (11.5-14.0) % Plt Count 262 (150-450) x10^3/uL MPV 9.7 (7.5-11.0) fL Gran % 74.5 H (36.0-66.0) % Immature Gran % (Auto) 0.3 (0.00-0.4) % Nucleat RBC Rel Count 0.0 (0.00-0.1) % Eos # (Auto) 0.04 (0-0.5) x10^3/uL Immature Gran # (Auto) 0.02 (0.00-0.03) x10^3u/L Absolute Lymphs (auto) 1.49 (1.0-4.6) x10^3/uL Absolute Monos (auto) 0.37 (0.0-1.3) x10^3/uL Absolute Nucleated RBC 0.00 (0.00-0.01) x10^3u/L Lymphocytes % 19.5 L (24.0-44.0) % Monocytes % 4.8 (0.0-12.0) % Eosinophils % 0.5 (0.00-5.0) % Basophils % 0.4 (0.0-0.4) % Absolute Granulocytes 5.69 (1.4-6.9) x10^3/uL Basophils # 0.03 (0-0.4) x10^3/uL Sodium (137-145) mmol/L Potassium (3.5-5.1) mmol/L Chloride (98-107) mmol/L Carbon Dioxide (22-30) mmol/L Anion Gap (5-15) MEQ/L BUN (7-17) mg/dL Creatinine (0.52-1.04) mg/dL Estimated GFR ML/MIN Glucose (74-106) mg/dL Calcium (8.4-10.2) mg/dL Total Bilirubin (0.2-1.3) mg/dL AST (14-36) U/L ALT (0-35) U/L Alkaline Phosphatase (38-126) U/L Serum Total Protein (6.3-8.2) g/dL Albumin (3.5-5.0) g/dL Lipase (23-300) U/L Serum , Qual (Negative) Urinalys Dipstick Clnc MAIN LAB Urine Color YELLOW (YELLOW) Urine Appearance CLEAR (CLEAR) Urine pH 5.5 (5-6) Ur Specific [place] <=1.005 (1.005-1.025) POC Urine Protein Conf NEGATIVE (Negative) Urine Ketones TRACE (NEGATIVE) Urine Nitrite NEGATIVE (NEGATIVE) Urine Bilirubin NEGATIVE (NEGATIVE) Urine Urobilinogen 0.2 (0-1) mg/dL Urine Leukocytes NEGATIVE (NEGATIVE) Urine WBC (Auto) 3-5 (0-5) /HPF Urine RBC (Auto) NONE (0-2) /HPF U Epithel Cells (Auto) RARE (FEW) /HPF Urine Bacteria (Auto) NONE (NEGATIVE) /HPF Urine RBC TRACE-INTACT (0-5) Omari/ul Ur Culture Indicated? NO Urine Glucose >=1000 (NEGATIVE) mg/dL Influenza Type A Ag (NEGATIVE) Influenza Type B Ag (NEGATIVE) RSV (PCR) (Negative) SARS-CoV-2 (PCR) (NEGATIVE) - Progress Progress: improved (In no distress), re-examined Progress Note: 01/24/22 13:26 1) Abdminal pain -Was placed in ED room 5 labs were ordered - hcg - negative - CBC, CMP,UA,LIPASE- WNL - COVID/FLU/RSV- NEGATIVE ct-shows evidence of constipation - discussed labs and imaging with pt, advised miralax, increased fluid intake , increase dietary fibre, OTC mag. citrate if needed - Advised close f/u with pcp in am - Advised to return for any new or worsening s/s or any concern at all - Pt. voiced understanding and had no further questions. - Departure Clinical Impression: Constipation Condition: Good Critical Care Time: No Referrals: DOCTOR,NO FAMILY [Primary Care Provider] - Follow up/PCP as directed Additional Instructions: Discharge/Care Plan LANETTE GARZA was seen on 01/24/22 in the Emergency Room. The patient was counseled regarding Diagnosis,Lab results, Imaging studies, need for follow up and when to return to the Emergency Room. Prescriptions given: Discharge Note I have spoken with the patient and/or caregivers. I have explained the patient's condition, diagnosis and treatment plan based on the information available to me at this time. I have answered the patient's and/or caregiver's questions and addressed any concerns. The patient and/or caregivers have as good understanding of the patient's diagnosis, condition and treatment plan as can be expected at this point. The vital signs have been stable. The patient's condition is stable and appropriate for discharge from the emergency department. The patient will pursue further outpatient evaluation with the primary care physician or other designated or consulting physician as outlined in the discharge instructions. The patient and/or caregivers are agreeable to this plan of care and follow-up instructions have been explained in detail. The patient and/or caregivers have received these instruction. The patient/and or caregivers are aware that any significant change in condition or worsening of symptoms should prompt an immediate return to this or the closest emergency department or call 911.
[2022-01-24 15:09] VITALS: BP 112/65; PULSE 67
--- NOTE | 2022-01-24 15:16 | XRAY ---
Exam: CT of the abdomen and pelvis without IV contrast from 01/24/2022. CTDI: 9.90 mGy Comparison: CT of the abdomen and pelvis with IV contrast from 07/28/2021. Indication: 36-year-old female with mid abdominal pain for 4 days associated with nausea/vomiting. Technique: Non-IV contrast axial images were obtained through the abdomen and pelvis. Reconstructed coronal and sagittal images were created and reviewed. No oral contrast was given. Findings: At the posterior lateral margin of the right lung base on axial image #12, I again see a subpleural 5.6 mm soft tissue nodule which is unchanged from 07/28/2021. There also appears to be a 6 mm in diameter subpleural soft tissue nodule at the posterior medial aspect of the right lung base on axial image #8 which I believe is unchanged from 07/28/2021 in retrospect. In addition, on axial images #2 and #3, there is a noncalcified subpleural 7.2 mm soft tissue nodule at the posterior lateral margin of the left lung base representing no significant change from 07/28/2021. This is encouraging that these nodules may be benign. Correlation with a follow-up CT in 1 year is recommended if these have not been shown to be stable for at least 2 years. The remainder of the lung bases appears clear. Evaluation of the solid organs is limited on a non-IV contrast study only. The liver appears of normal size and uniform attenuation. No obvious hepatic mass or intrahepatic biliary duct distention is seen. The gallbladder is partially distended and reveals no dense calcifications within it. The spleen appears of normal size and reveals no mass. The pancreas and adrenal glands appear normal. The kidneys are of average size and reveal no hydronephrosis or renal calculi. No obvious renal mass is seen. No significant ureteral distention or ureteral calculi are seen. The abdominal aorta appears of normal diameter. No abnormal retroperitoneal lymphadenopathy is seen. There is no free air or ventral abdominal wall hernia. Scattered feces are noted throughout the colon. No bowel distention to suggest bowel obstruction is seen. An unremarkable appendix is seen within the right lower quadrant representing no change. The uterus is anteflexed. The ovaries reveal no significant abnormality. No abnormal pelvic lymphadenopathy or free fluid is seen. The urinary bladder is partially distended and reveals no abnormality. The femoral regions reveal a few small reactive lymph nodes. The skeleton reveals no acute fracture or aggressive bone lesion. Mild scattered vertebral endplate spurring is seen within the visualized thoracolumbar spine. No other focal bone lesion is seen. Impression: 1. Prior noncalcified, subpleural bibasilar soft tissue lung nodules remain unchanged dating back to 07/28/2021. I would recommend a follow-up CT in 1 year to assess continued stability if these have not been shown to be stable for at least a two-year period of time. 2. Mild diffuse fecal stasis is seen. I see no bowel obstruction, appendicitis, or other bowel abnormality. 3. No other acute process is seen within the abdomen or pelvis. This is unchanged from 07/28/2021 as well.
[2022-01-25 23:33] VITALS: O2SAT 97
== END 2022-01-24 16:02 | disposition home or self-care (01) ==
LOC: ED 11:36
DX: K59.00 Constipation, unspecified (principal); R10.33 Periumbilical pain; R51.9 Headache, unspecified; E11.65 Type 2 diabetes mellitus with hyperglycemia; Z72.0 Tobacco use; Z79.84 Long term (current) use of oral hypoglycemic drugs; Z79.899 Other long term (current) drug therapy; Z28.310 Unvaccinated for COVID-19
CPT/HCPCS: 0241U; 36415; 74176; 80053; 81015; 83690; 84703; 85025; 99283

== ENCOUNTER 2022-10-06 16:53 | Emergency (ER) | payer OTHER ==
[2022-10-06 17:26] VITALS: PULSE 98
[2022-10-06 17:38] LABS: Appearance Cloudy (Clear); Bilirubin Negative (Negative); Blood NHT (Negative); Glucose, Urine >=1000 mg/dL (Negative); Ketones 15 (Negative); Leukocyte Esterase Moderate (Negative); Nitrite Negative (Negative); Ph 5.5 (4.6-8.0); Protein,Urine Dip Trace (Negative); Specific Gravity 1.025 (1.005-1.030); Urobilinogen 0.2 mg/dL (0.2)
[2022-10-06 17:42] LABS: Bacteria Moderate /HPF (None Seen); Epithelial Cells None Seen /HPF (None Seen); Hyaline Casts NONE SEEN /LPF (0-2); RBC 0-2 /HPF (0-5); WBC >100 /HPF (0-5)
[2022-10-06 17:43] LABS: ADD URINE CULTURE? YES (NO)
[2022-10-06 18:43] VITALS: BP 125/84; O2SAT 98
[2022-10-06] MEDS ORDERED: Macrobid 100MG Capsule PO ONE (18:45)
[2022-10-06] MEDS ORDERED: Macrobid 100MG Capsule ONE (18:51)
--- NOTE | 2022-10-06 18:54 | ERPHSYRPT ---
- History of Present Illness Time Seen by Provider: 10/06/22 18:51 Source: patient Exam Limitations: no limitations Patient Subjective Stated Complaint: pt states I think I have a UTI. I get them a lot Triage Nursing Assessment: pt ambulated into the er; pt is axo x4; c/o difficulty urinating; abd is round, soft, nontender; active bowel sounds in all quads; no respiratory distress present; skin PDW; vitals wnl Physician History: Patient is a 36-year-old female history of diabetes and recurrent urinary tract infections presents to our ED for evaluation of urinary symptomology. Patient believes she has another urinary tract infection. No fever. No CVA tenderness. No nausea no vomiting. Patient symptoms are mild to moderate in intensity. No specific worsening improving factors. Patient voices no other complaints or concerns at this time. Portions of this note were created with voice recognition technology. There may be grammatical, spelling, punctuation or sound alike errors Timing/Duration: day(s) (4 days ago) Severity: moderate Modifying Factors: Improves With: nothing Associated Symptoms: denies symptoms Allergies/Adverse Reactions: nickel Allergy (Verified 10/06/22 17:04) amoxicillin Adverse Reaction (Severe, Verified 10/06/22 17:04) nausea and severe vomiting Home Medications: Metformin HCl [Metformin ER Gastric] 1 ea PO BID 03/11/21 [History] ARIPiprazole [Aripiprazole] 5 mg PO HS 10/06/22 [History] Venlafaxine HCl [Venlafaxine HCl ER] 75 mg PO HS 10/06/22 [History] Hx Tetanus, Diphtheria Vaccination/Date Given: Yes Hx Influenza Vaccination/Date Given: No Hx Pneumococcal Vaccination/Date Given: No Travel Risk - International Travel Have you traveled outside of the country in past 3 weeks: No - Coronavirus Screening Close contact with a COVID-19 positive Pt in past 14-21 Days: No - Vaccine Status Have you recieved a Covid-19 vaccination: No - Review of Systems Constitutional: No Symptoms, No Fever, No Chills Eyes: No Symptoms Ears, Nose, & Throat: No Symptoms Respiratory: No Symptoms, No Cough, No Dyspnea Cardiac: No Symptoms, No Chest Pain, No Edema, No Syncope Abdominal/Gastrointestinal: No Symptoms, No Abdominal Pain, No Nausea, No Vomiting, No Diarrhea Genitourinary Symptoms: No Symptoms, No Dysuria Musculoskeletal: No Symptoms, No Back Pain, No Neck Pain Skin: No Symptoms, No Rash Neurological: No Symptoms, No Dizziness, No Focal Weakness, No Sensory Changes Psychological: No Symptoms Endocrine: No Symptoms Hematologic/Lymphatic: No Symptoms Immunological/Allergic: No Symptoms All Other Systems: Reviewed and Negative - Past Medical History Pertinent Past Medical History: No Neurological History: No Pertinent History ENT History: No Pertinent History Cardiac History: No Pertinent History Respiratory History: No Pertinent History Endocrine Medical History: No Pertinent History Musculoskeletal History: No Pertinent History GI Medical History: No Pertinent History History: No Pertinent History Psycho-Social History: Anxiety, Depression Female Reproductive Disorders: No Pertinent History - Past Surgical History Past Surgical History: Yes Neuro Surgical History: No Pertinent History Cardiac: No Pertinent History Respiratory: No Pertinent History Gastrointestinal: No Pertinent History Genitourinary: No Pertinent History Musculoskeletal: No Pertinent History Female Surgical History: Section - Social History Smoking Status: Light tobacco smoker How long have you smoked: 1 Exposure to second hand smoke: No Drug Use: none Patient Lives Alone: No - Female History Hx Now: No - Nursing Vital Signs Nursing Vital Signs: Initial Vital Signs Temperature 97 F 10/06/22 17:09 Pulse Rate 78 10/06/22 17:09 Respiratory Rate 18 10/06/22 17:09 Blood Pressure 131/87 10/06/22 17:09 O2 Sat by Pulse Oximetry 97 10/06/22 17:09 Pain Scale Pain Intensity 0 - Physical Exam General Appearance: no apparent distress, alert Eye Exam: PERRL/EOMI, eyes nml inspection Ears, Nose, Throat Exam: normal ENT inspection, TMs normal, pharynx normal, moist mucous membranes Neck Exam: normal inspection, non-tender, supple, full range of motion Respiratory Exam: normal breath sounds, lungs clear, airway intact, No respiratory distress Cardiovascular Exam: regular rate/rhythm, normal heart sounds, normal peripheral pulses Gastrointestinal/Abdomen Exam: soft, normal bowel sounds, No tenderness, No mass Back Exam: normal inspection, normal range of motion, No CVA tenderness, No vertebral tenderness Extremity Exam: normal inspection, normal range of motion, pelvis stable Neurologic Exam: alert, oriented x 3, cooperative, normal mood/affect, nml cerebellar function, nml station & gait, sensation nml, No motor deficits Skin Exam: normal color, warm, dry, No rash Lymphatic Exam: No adenopathy SpO2 Interpretation: normal SpO2: 98 O2 Delivery: Room Air - Course Nursing assessment & vital signs reviewed: Yes Ordered Tests: Active Orders 24 hr Category Date Time Status CULTURE,URINE Stat Lab 10/06/22 17:26 Received POCT GLUCOSE Stat Lab 10/06/22 18:55 Completed UA W/RFX UR CULTURE Stat Lab 10/06/22 17:26 Completed Medication Summary Discontinued Medications Generic Name Dose Route Start Last Admin Trade Name Tru PRN Reason Stop Dose Admin Nitrofurantoin Macrocrystals 100 mg 10/06/22 18:45 10/06/22 18:51 Nitrofurantoin Macro 100 Mg Capsule PO 10/06/22 18:46 100 mg STAT ONE Administration Nitrofurantoin Macrocrystals Confirm 10/06/22 18:51 Nitrofurantoin Macro 100 Mg Capsule Administered 10/06/22 18:52 Dose 100 mg .ROUTE .[employer] ONE Lab/Rad Data: Laboratory Results 10/06/22 10/06/22 Range/Units 18:55 17:26 POC Glucometer 165 H (74 to 106) mg/dL Urine Color Yellow (Yellow) Urine Appearance Cloudy A (Clear) Urine pH 5.5 (4.6-8.0) Ur Specific [place] 1.025 (1.005-1.030) Urine Protein Trace A (Negative) Urine Glucose (UA) >=1000 A (Negative) mg/dL Urine Ketones 15 A (Negative) Urine Blood NHT (Negative) Urine Nitrite Negative (Negative) Urine Bilirubin Negative (Negative) Urine Urobilinogen 0.2 (0.2) mg/dL Ur Leukocyte Esterase Moderate A (Negative) U Hyaline Cast (Auto) NONE SEEN (0-2) /LPF Urine Microscopic RBC 0-2 (0-5) /HPF Urine Microscopic WBC >100 A (0-5) /HPF Ur Epithelial Cells None Seen (None Seen) /HPF Urine Bacteria Moderate A (None Seen) /HPF Urine Culture Reflexed YES (NO) - Progress Progress: improved Progress Note: Patient 36-year-old female presents to emergency department for evaluation of urinary symptomology. Urinalysis reveals urinary tract infection. Patient received a dose of Macrobid in our ED. blood glucose is 165. UA also revealed some ketones. We advised a work-up to make sure patient is not developing DKA or acidosis. Patient states she feels fine patient declined work-up. Patient states she will take the antibiotics and follow-up with her family doctor. Patient states that her daughter has surgery scheduled next week and she is focusing on preparing for her daughter surgery. Patient is asymptomatic otherwise. She is requesting discharge. Complexity of problem addressed is low acute uncomplicated no systemic manifestations of her urinary tract infection. No CVA tenderness. No critical care time Complexity of data reviewed and analyzed is moderate. Dr. Lin independently reviewed and analyzed urinalysis. Risk of complication and or risk of morbidity/mortality of patient management is moderate. Macrobid forwarded to patient's pharmacy. Patient agrees to follow-up with her primary care doctor within 48 hours for reevaluation. Vital stable. Time spent to discharge patient is approximately 10 minutes. Portions of this note were created with voice recognition technology. There may be grammatical, spelling, punctuation or sound alike errors 10/06/22 18:59 Counseled pt/family regarding: diagnosis, need for follow-up - Departure Departure Disposition: Home Clinical Impression: UTI (urinary tract infection), Glucosuria Condition: Stable Critical Care Time: No Referrals: FARSHAD PICHARDO [Primary Care Provider] - Follow up/PCP as directed Instructions: Urinary Tract Infection, Child ED Additional Instructions: Discharge/Care Plan KAYLALANETTE KELLY was seen on 10/06/22 in the Emergency Room. The patient was counseled regarding Diagnosis,Lab results, Imaging studies, need for follow up and when to return to the Emergency Room. Prescriptions given: Discharge Note I have spoken with the patient and/or caregivers. I have explained the patient's condition, diagnosis and treatment plan based on the information available to me at this time. I have answered the patient's and/or caregiver's questions and addressed any concerns. The patient and/or caregivers have as good understanding of the patient's diagnosis, condition and treatment plan as can be expected at this point. The vital signs have been stable. The patient's condition is stable and appropriate for discharge from the emergency department. The patient will pursue further outpatient evaluation with the primary care physician or other designated or consulting physician as outlined in the discharge instructions. The patient and/or caregivers are agreeable to this plan of care and follow-up instructions have been explained in detail. The patient and/or caregivers have received these instruction. The patient/and or caregivers are aware that any significant change in condition or worsening of symptoms should prompt an immediate return to this or the closest emergency department or call 911. Prescriptions: Nitrofurantoin Macro 100 mg [Macrobid 100MG Capsule] 100 mg PO BID 7 Days #14 cap
== END 2022-10-06 18:59 | disposition home or self-care (01) ==
LOC: ED 16:53
DX: N39.0 Urinary tract infection, site not specified (principal); R81 Glycosuria; E11.9 Type 2 diabetes mellitus without complications; Z79.84 Long term (current) use of oral hypoglycemic drugs; Z79.899 Other long term (current) drug therapy; Z28.310 Unvaccinated for COVID-19; Z72.0 Tobacco use
CPT/HCPCS: 81001; 82947; 87077; 87086; 87186; 99283; A9270-GY

== ENCOUNTER 2022-10-23 15:34 | Emergency (ER) | payer OTHER ==
[2022-10-23 17:08] VITALS: BP 130/58
[2022-10-23 17:59] LABS: Appearance Cloudy (Clear); Bacteria Many /HPF (None Seen); Bilirubin Negative (Negative); Blood Small (Negative); Epithelial Cells Rare /HPF (None Seen); Glucose, Urine >=1000 mg/dL (Negative); Hyaline Casts NONE SEEN /LPF (0-2); Ketones 15 (Negative); Leukocyte Esterase Small (Negative); Nitrite Positive (Negative); Ph 5.5 (4.6-8.0); Protein,Urine Dip Trace (Negative); Specific Gravity >=1.030 (1.005-1.030); Urobilinogen 0.2 mg/dL (0.2); WBC >100 /HPF (0-5)
[2022-10-23 18:01] LABS: ADD URINE CULTURE? YES (NO)
[2022-10-23] MEDS ORDERED: BACTRIM DS TABLET PO STA (19:06)
[2022-10-23] MEDS ORDERED: BACTRIM DS TABLET PO ONE (19:07)
--- NOTE | 2022-10-23 19:23 | ERPHSYRPT ---
- History of Present Illness Time Seen by Provider: 10/23/22 18:10 Source: patient Exam Limitations: no limitations Patient Subjective Stated Complaint: UTI Triage Nursing Assessment: Patient reports to ER with complaints of urinary frequency, urgency and burning sensation. Patient also reports lower abdominal pain, rating pain 4/10 at this time. Patient reports frequent UTIS. Physician History: 36-year-old female presented in the ER with increased urinary frequency, burning and some lower abdominal/suprapubic discomfort for the last couple of days with progressive worsening. Does have history of recurrent UTIs. No flank pain, fever chills, nausea or vomiting reported. Timing/Duration: day(s) (2), gradual onset, worse Quality: burning Onset Location: suprapubic Pain Radiation: none Severity of Pain-Max: mild Severity of Pain-Current: mild Sexual intercourse history: non-contributory Modifying Factors: Improves With: nothing Associated Symptoms: dysuria, urinary frequency, No fever Allergies/Adverse Reactions: nickel Allergy (Verified 10/23/22 16:45) amoxicillin Adverse Reaction (Severe, Verified 10/23/22 16:45) nausea and severe vomiting Home Medications: Metformin HCl [Metformin ER Gastric] 1 ea PO BID 03/11/21 [History] ARIPiprazole [Aripiprazole] 5 mg PO HS 10/06/22 [History] Venlafaxine HCl [Venlafaxine HCl ER] 75 mg PO HS 10/06/22 [History] Empagliflozin [Jardiance] 25 mg PO DAILY 10/23/22 [History] Hx Tetanus, Diphtheria Vaccination/Date Given: Yes Hx Influenza Vaccination/Date Given: No Hx Pneumococcal Vaccination/Date Given: No Travel Risk - International Travel Have you traveled outside of the country in past 3 weeks: No - Coronavirus Screening Are you exhibiting any of the following symptoms?: No Close contact with a COVID-19 positive Pt in past 14-21 Days: No - Vaccine Status Have you recieved a Covid-19 vaccination: No - Review of Systems Constitutional: No Symptoms Eyes: No Symptoms Respiratory: No Symptoms Cardiac: No Symptoms Abdominal/Gastrointestinal: Other (Suprapubic dyspnea) Genitourinary Symptoms: Frequency, Hesitancy, No Hematuria, No Flank Pain Musculoskeletal: No Symptoms Skin: No Symptoms Neurological: No Symptoms - Past Medical History Pertinent Past Medical History: No Neurological History: No Pertinent History ENT History: No Pertinent History Cardiac History: No Pertinent History Respiratory History: No Pertinent History Endocrine Medical History: No Pertinent History Musculoskeletal History: No Pertinent History GI Medical History: No Pertinent History History: No Pertinent History Psycho-Social History: Anxiety, Depression Female Reproductive Disorders: No Pertinent History - Past Surgical History Past Surgical History: Yes Neuro Surgical History: No Pertinent History Cardiac: No Pertinent History Respiratory: No Pertinent History Gastrointestinal: No Pertinent History Genitourinary: No Pertinent History Musculoskeletal: No Pertinent History Female Surgical History: Section - Social History Smoking Status: Former smoker How long have you smoked: 1 Exposure to second hand smoke: No Drug Use: none Patient Lives Alone: Yes - Female History Hx Now: No - Nursing Vital Signs Nursing Vital Signs: Initial Vital Signs Temperature 97.5 F 10/23/22 17:00 Pulse Rate 89 10/23/22 17:00 Respiratory Rate 18 10/23/22 17:00 Blood Pressure 130/58 10/23/22 17:00 O2 Sat by Pulse Oximetry 97 10/23/22 17:00 Pain Scale Pain Intensity 4 - Physical Exam General Appearance: no apparent distress, alert Eye Exam: PERRL/EOMI Neck Exam: normal inspection, full range of motion Respiratory Exam: normal breath sounds, lungs clear Cardiovascular Exam: regular rate/rhythm, normal heart sounds Gastrointestinal/Abdomen Exam: soft, normal bowel sounds, No tenderness Extremity Exam: normal inspection, normal range of motion Neurologic Exam: alert, oriented x 3, cooperative Skin Exam: normal color SpO2 Interpretation: normal SpO2: 97 O2 Delivery: Room Air Ordered Tests: Active Orders 24 hr Category Date Time Status CULTURE,URINE Stat Lab 10/23/22 17:46 Received UA W/RFX UR CULTURE Stat Lab 10/23/22 17:46 Completed Medication Summary Discontinued Medications Generic Name Dose Route Start Last Admin Trade Name Freq PRN Reason Stop Dose Admin Trimethoprim/Sulfamethoxazole 1 tab 10/23/22 19:06 10/23/22 19:08 Smz/Tmp Ds Tablet 1 Tablet PO 10/23/22 19:07 1 tab STAT STA Administration Trimethoprim/Sulfamethoxazole Confirm 10/23/22 19:07 Smz/Tmp Ds Tablet 1 Tablet Administered 10/23/22 19:08 Dose 1 tab PO .[facility] ONE Lab/Rad Data: Laboratory Results 10/23/22 Range/Units 17:46 Urine Color Yellow (Yellow) Urine Appearance Cloudy A (Clear) Urine pH 5.5 (4.6-8.0) Ur Specific [place] >=1.030 A (1.005-1.030) Urine Protein Trace A (Negative) Urine Glucose (UA) >=1000 A (Negative) mg/dL Urine Ketones 15 A (Negative) Urine Blood Small A (Negative) Urine Nitrite Positive A (Negative) Urine Bilirubin Negative (Negative) Urine Urobilinogen 0.2 (0.2) mg/dL Ur Leukocyte Esterase Small A (Negative) U Hyaline Cast (Auto) NONE SEEN (0-2) /LPF Urine Microscopic RBC 3-5 (0-5) /HPF Urine Microscopic WBC >100 A (0-5) /HPF Ur Epithelial Cells Rare (None Seen) /HPF Urine Bacteria Many A (None Seen) /HPF Urine Culture Reflexed YES (NO) - Progress Progress: unchanged Air Movement: good Progress Note: 10/23/22 19:21 36-year-old is evaluated for UTI symptoms with increased urinary frequency, hesitancy and burning sensation with some suprapubic discomfort. Has a history of recurrent UTI. Urinalysis consistent with positive nitrites and leukocyte esterase with a lot of WBCs in the urine suggesting acute cystitis, started on Bactrim. Recommended outpatient follow-up. Has no flank tenderness. Do not think needs any other work-up and is stable for discharge Blood Culture(s) Obtained: No Antibiotics given: Yes Counseled pt/family regarding: lab results, diagnosis, need for follow-up Medical Desision Making - Diagnostic Testing Diagnostic test were ordered, analyzed, and reviewed by me: Yes - Risk of complications The pt has a mod risk of morbidity or mortality based on: Need for prescription drug management - Departure Departure Disposition: Home Clinical Impression: UTI (urinary tract infection) Condition: Stable Critical Care Time: No Referrals: FARSHAD PICHARDO [Primary Care Provider] - Follow up with PCP 2 days Instructions: Urinary Tract Infection, Adult (DC) Additional Instructions: Take Tylenol/ibuprofen as needed, follow-up with primary care for reevaluation. Return to ER for any worsening. Prescriptions: Smz/Tmp Ds Tablet [Bactrim Ds Tablet] 1 udtab PO BID #14 tablet
[2022-10-23 19:39] VITALS: PULSE 84; O2SAT 98
== END 2022-10-23 19:38 | disposition home or self-care (01) ==
LOC: ED 15:34
DX: N39.0 Urinary tract infection, site not specified (principal); R35.0 Frequency of micturition; R30.0 Dysuria; R10.2 Pelvic and perineal pain; Z79.84 Long term (current) use of oral hypoglycemic drugs; Z79.899 Other long term (current) drug therapy; Z28.310 Unvaccinated for COVID-19
CPT/HCPCS: 81001; 87077; 87086; 87186; 99282; A9270-GY

== ENCOUNTER 2022-10-30 17:35 | Emergency (ER) | payer OTHER ==
[2022-10-30 17:56] VITALS: BP 136/98; PULSE 98; O2SAT 96
--- NOTE | 2022-10-30 17:59 | ERPHSYRPT ---
- History of Present Illness Time Seen by Provider: 10/30/22 17:37 Source: patient Exam Limitations: no limitations Patient Subjective Stated Complaint: pt would like a test and doesn't have any money for a home test Triage Nursing Assessment: Pt brought self to the ER, denies pain, pulses normal, skin n/w/d, doesn't appear to be in any distress Physician History: 36-year-old female presented in the ER for test. Patient reports her last cycle was September 15, she was on control pill which she stopped taking almost a month ago. Reports morning sickness. Does report unprotected sexual activity. Denies any vaginal bleeding or discharge. She was recently treated for UTI and does not report having any symptoms now. No abdominal pain/pelvic pain reported. Allergies/Adverse Reactions: nickel Allergy (Verified 10/30/22 17:56) amoxicillin Adverse Reaction (Severe, Verified 10/30/22 17:56) nausea and severe vomiting Home Medications: Metformin HCl [Metformin ER Gastric] 1 ea PO BID 03/11/21 [History] ARIPiprazole [Aripiprazole] 5 mg PO HS 10/06/22 [History] Venlafaxine HCl [Venlafaxine HCl ER] 75 mg PO HS 10/06/22 [History] Empagliflozin [Jardiance] 25 mg PO DAILY 10/23/22 [History] Hx Tetanus, Diphtheria Vaccination/Date Given: Yes Hx Influenza Vaccination/Date Given: No Hx Pneumococcal Vaccination/Date Given: No Travel Risk - International Travel Have you traveled outside of the country in past 3 weeks: No - Coronavirus Screening Are you exhibiting any of the following symptoms?: No Close contact with a COVID-19 positive Pt in past 14-21 Days: No - Vaccine Status Have you recieved a Covid-19 vaccination: No - Review of Systems Constitutional: No Symptoms Ears, Nose, & Throat: No Symptoms Respiratory: No Symptoms Cardiac: No Symptoms Abdominal/Gastrointestinal: No Symptoms Genitourinary Symptoms: No Symptoms Musculoskeletal: No Symptoms Skin: No Symptoms Neurological: No Symptoms Psychological: No Symptoms - Past Medical History Pertinent Past Medical History: Yes Neurological History: No Pertinent History ENT History: No Pertinent History Cardiac History: No Pertinent History Respiratory History: No Pertinent History Endocrine Medical History: No Pertinent History Musculoskeletal History: No Pertinent History GI Medical History: No Pertinent History History: No Pertinent History Psycho-Social History: Anxiety, Depression Female Reproductive Disorders: No Pertinent History - Past Surgical History Past Surgical History: Yes Neuro Surgical History: No Pertinent History Cardiac: No Pertinent History Respiratory: No Pertinent History Gastrointestinal: No Pertinent History Genitourinary: No Pertinent History Musculoskeletal: No Pertinent History Female Surgical History: Section - Social History Smoking Status: Former smoker How long have you smoked: 1 Exposure to second hand smoke: No Drug Use: none Patient Lives Alone: No - Female History Hx Now: No (unknown) - Nursing Vital Signs Nursing Vital Signs: Initial Vital Signs Temperature 96.4 F 10/30/22 17:41 Pulse Rate 98 H 10/30/22 17:41 Blood Pressure 136/98 10/30/22 17:41 O2 Sat by Pulse Oximetry 96 10/30/22 17:41 Pain Scale Pain Intensity 0 - Physical Exam General Appearance: no apparent distress, alert Eye Exam: PERRL/EOMI Neck Exam: normal inspection, full range of motion Respiratory Exam: normal breath sounds, lungs clear Cardiovascular Exam: regular rate/rhythm, normal heart sounds Gastrointestinal/Abdomen Exam: soft, normal bowel sounds, No tenderness Back Exam: normal inspection Extremity Exam: normal inspection, normal range of motion Neurologic Exam: alert, oriented x 3, cooperative Skin Exam: normal color SpO2 Interpretation: normal SpO2: 96 O2 Delivery: Room Air Ordered Tests: Active Orders 24 hr Category Date Time Status CULTURE,URINE Stat Lab 10/30/22 18:00 Received HCG QUALITATIVE, URINE Stat Lab 10/30/22 18:00 Completed UA W/RFX UR CULTURE Stat Lab 10/30/22 18:00 Completed Lab/Rad Data: Laboratory Results 10/30/22 10/30/22 Range/Units 18:00 18:00 Urine Color Yellow (Yellow) Urine Appearance Clear (Clear) Urine pH 5.0 (4.6-8.0) Ur Specific [place] >=1.030 A (1.005-1.030) Urine Protein Trace A (Negative) Urine Glucose (UA) >=1000 A (Negative) mg/dL Urine Ketones 40 A (Negative) Urine Blood Negative (Negative) Urine Nitrite Negative (Negative) Urine Bilirubin Negative (Negative) Urine Urobilinogen 0.2 (0.2) mg/dL Ur Leukocyte Esterase Negative (Negative) U Hyaline Cast (Auto) 3-5 A (0-2) /LPF Urine Microscopic RBC 0-2 (0-5) /HPF Urine Microscopic WBC 11-20 A (0-5) /HPF Ur Epithelial Cells Few (None Seen) /HPF Urine Bacteria Few A (None Seen) /HPF Urine Culture Reflexed YES (NO) Urine HCG, Qual NEGATIVE (NEGATIVE) - Progress Progress Note: 10/30/22 18:32 36-year-old female presented in the ER for test. Patient reports her last cycle was September 15, she was on control pill which she stopped taking almost a month ago. Reports morning sickness. Does report unprotected sexual activity. Denies any vaginal bleeding or discharge. She was recently treated for UTI and does not report having any symptoms now. No abdominal pain/pelvic pain reported. test is negative. Still have questionable UTI, patient does not have any symptoms, I will not treat her. I believe patient has delayed cycle since she recently stopped taking control pills. This is quite common. 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 Counseled pt/family regarding: lab results, diagnosis, need for follow-up Medical Desision Making - Diagnostic Testing Diagnostic test were ordered, analyzed, and reviewed by me: Yes - Risk of complications Low Risk: Low risk of morbidity from additional dx testing or treatment - Departure Departure Disposition: Home Clinical Impression: Encounter for test with result negative Condition: Stable Critical Care Time: No Referrals: FARSHAD PICHARDO [Primary Care Provider] - Follow up/PCP as directed Instructions: Nausea and Vomiting, Adult (DC) Additional Instructions: Follow-up with your primary care and your CREDIT CONTROL MANAGER for further evaluation. Return to ER for any worsening.
[2022-10-30 18:02] LABS: HCG URINE TEST NEGATIVE (NEGATIVE)
[2022-10-30 18:12] LABS: Appearance Clear (Clear); Bacteria Few /HPF (None Seen); Bilirubin Negative (Negative); Blood Negative (Negative); Epithelial Cells Few /HPF (None Seen); Glucose, Urine >=1000 mg/dL (Negative); Ketones 40 (Negative); Leukocyte Esterase Negative (Negative); Nitrite Negative (Negative); Protein,Urine Dip Trace (Negative); RBC 0-2 /HPF (0-5); Specific Gravity >=1.030 (1.005-1.030); Urobilinogen 0.2 mg/dL (0.2)
[2022-10-30 18:13] LABS: ADD URINE CULTURE? YES (NO)
== END 2022-10-30 19:06 | disposition home or self-care (01) ==
LOC: ED 17:35
DX: Z32.02 Encounter for pregnancy test, result negative (principal); Z79.84 Long term (current) use of oral hypoglycemic drugs; Z79.899 Other long term (current) drug therapy; Z28.310 Unvaccinated for COVID-19
CPT/HCPCS: 81001; 81025; 87086; 99282

== ENCOUNTER 2022-12-17 13:18 | Emergency (ER) | payer OTHER ==
--- NOTE | 2022-12-17 13:21 | ERPHSYRPT ---
- History of Present Illness Time Seen by Provider: 12/17/22 13:21 Source: patient Exam Limitations: no limitations Physician History: This is a 36-year-old female who presents to the emergency department "not feeling well" since yesterday. Patient stated that she was nauseated yesterday and then today she had generalized achiness feeling. 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 She is not sure if this is something she has or not. She has not had any vomiting or diarrhea symptoms. She has no chest pain. She has no shortness of breath. She has no cough. She has no abdominal pain. Patient has a history of diabetes, anxiety and depression. Timing/Duration: yesterday, worse Severity: mild Associated Symptoms: nausea, weakness, No vomiting, No abdominal pain, No shortness of breath, No cough, No chest pain, No fever, No headaches Allergies/Adverse Reactions: nickel Allergy (Verified 12/17/22 13:28) amoxicillin Adverse Reaction (Severe, Verified 12/17/22 13:28) nausea and severe vomiting Home Medications: Metformin HCl [Metformin ER Gastric] 1 ea PO BID 03/11/21 [History] ARIPiprazole [Aripiprazole] 5 mg PO HS 10/06/22 [History] Venlafaxine HCl [Venlafaxine HCl ER] 75 mg PO HS 10/06/22 [History] Empagliflozin [Jardiance] 25 mg PO DAILY 10/23/22 [History] Hx Tetanus, Diphtheria Vaccination/Date Given: Yes Hx Influenza Vaccination/Date Given: No Hx Pneumococcal Vaccination/Date Given: No Travel Risk - International Travel Have you traveled outside of the country in past 3 weeks: No - Coronavirus Screening Are you exhibiting any of the following symptoms?: Yes Symptoms: Headaches/Body Aches/Fatigue - Vaccine Status Have you recieved a Covid-19 vaccination: No - Review of Systems Constitutional: Weakness (Mild) Eyes: No Symptoms Ears, Nose, & Throat: No Symptoms Respiratory: No Symptoms Cardiac: No Symptoms Abdominal/Gastrointestinal: Nausea, No Abdominal Pain, No Vomiting, No Diarrhea, No Constipation Genitourinary Symptoms: No Symptoms Musculoskeletal: Arthralgias, Myalgias Skin: No Symptoms Neurological: No Symptoms Psychological: No Symptoms Endocrine: No Symptoms Hematologic/Lymphatic: No Symptoms Immunological/Allergic: No Symptoms All Other Systems: Reviewed and Negative - Past Medical History Pertinent Past Medical History: Yes Neurological History: No Pertinent History ENT History: No Pertinent History Cardiac History: No Pertinent History Respiratory History: No Pertinent History Endocrine Medical History: No Pertinent History Musculoskeletal History: No Pertinent History GI Medical History: No Pertinent History History: No Pertinent History Psycho-Social History: Anxiety, Depression Female Reproductive Disorders: No Pertinent History - Past Surgical History Past Surgical History: Yes Neuro Surgical History: No Pertinent History Cardiac: No Pertinent History Respiratory: No Pertinent History Gastrointestinal: No Pertinent History Genitourinary: No Pertinent History Musculoskeletal: No Pertinent History Female Surgical History: Section - Social History Smoking Status: Former smoker How long have you smoked: 1 Exposure to second hand smoke: No Drug Use: none Patient Lives Alone: No - Nursing Vital Signs Nursing Vital Signs: Initial Vital Signs Temperature 98.0 F 12/17/22 13:29 Pulse Rate 73 12/17/22 13:29 Respiratory Rate 18 12/17/22 13:29 Blood Pressure 140/87 12/17/22 13:29 O2 Sat by Pulse Oximetry 96 12/17/22 13:29 Pain Scale Pain Intensity 0 - Physical Exam General Appearance: no apparent distress, alert, anxiety Eye Exam: PERRL/EOMI, eyes nml inspection Ears, Nose, Throat Exam: normal ENT inspection, moist mucous membranes Neck Exam: normal inspection, non-tender, supple, full range of motion Respiratory Exam: normal breath sounds, lungs clear, airway intact, No chest tenderness, No respiratory distress Cardiovascular Exam: regular rate/rhythm, normal heart sounds, normal peripheral pulses Gastrointestinal/Abdomen Exam: soft, normal bowel sounds, No tenderness Pelvic Exam: not done Rectal Exam: not done Back Exam: normal inspection, normal range of motion, No CVA tenderness, No vertebral tenderness Extremity Exam: normal inspection, normal range of motion, pelvis stable Neurologic Exam: alert, oriented x 3, cooperative, ambulance paramedic II-XII nml as tested, normal mood/affect, nml cerebellar function, nml station & gait, sensation nml Skin Exam: normal color, warm, dry Lymphatic Exam: No adenopathy SpO2 Interpretation: normal O2 Delivery: Room Air - Course Nursing assessment & vital signs reviewed: Yes Ordered Tests: Active Orders 24 hr Category Date Time Status CULTURE,URINE Stat Lab 12/17/22 13:48 Received HCG QUALITATIVE, URINE Stat Lab 12/17/22 13:48 Completed UA W/RFX UR CULTURE Stat Lab 12/17/22 13:48 Completed Medication Summary Discontinued Medications Generic Name Dose Route Start Last Admin Trade Name Tru PRN Reason Stop Dose Admin Ceftriaxone Sodium 1,000 mg 12/17/22 14:35 12/17/22 14:43 Ceftriaxone Sodium 1000 Mg Inj Vial IM 12/17/22 14:36 1,000 mg STAT ONE Administration Ceftriaxone Sodium Confirm 12/17/22 14:38 Ceftriaxone Sodium 1000 Mg Inj Vial Administered 12/17/22 14:39 Dose 1,000 mg .ROUTE .STK-MED ONE Lidocaine HCl Confirm 12/17/22 14:38 Lidocaine Hcl 1% 20 Ml Mdv 20 Ml Ml Administered 12/17/22 14:39 Dose 3 ml .ROUTE .STK-MED ONE Ondansetron HCl 4 mg 12/17/22 13:46 12/17/22 13:50 Zofran 4 Mg/Udtablet Orally Disintegrating PO 12/17/22 13:47 4 mg STAT ONE Administration Ondansetron HCl Confirm 12/17/22 13:49 Zofran 4 Mg/Udtablet Orally Disintegrating Administered 12/17/22 13:50 Dose 4 mg .ROUTE .STK-MED ONE Lab/Rad Data: Laboratory Results 12/17/22 12/17/22 12/17/22 Range/Units 13:48 13:48 13:48 Urine Color (Yellow) Urine Appearance (Clear) Urine pH (4.6-8.0) Ur Specific [place] (1.005-1.030) Urine Protein (Negative) Urine Glucose (UA) (Negative) mg/dL Urine Ketones (Negative) Urine Blood (Negative) Urine Nitrite (Negative) Urine Bilirubin (Negative) Urine Urobilinogen (0.2) mg/dL Ur Leukocyte Esterase (Negative) U Hyaline Cast (Auto) (0-2) /LPF Urine Microscopic RBC (0-5) /HPF Urine Microscopic WBC (0-5) /HPF Ur Epithelial Cells (None Seen) /HPF Urine Bacteria (None Seen) /HPF Urine Culture Reflexed (NO) Urine HCG, Qual NEGATIVE (NEGATIVE) Influenza Type A Ag NEGATIVE (NEGATIVE) Influenza Type B Ag NEGATIVE (NEGATIVE) RSV (PCR) NEGATIVE (NEGATIVE) SARS-CoV-2 (PCR) NEGATIVE (NEGATIVE) Group A Strep Antibody NOT DETECTED (NEGATIVE) 12/17/22 Range/Units 13:48 Urine Color Yellow (Yellow) Urine Appearance Cloudy A (Clear) Urine pH 6.5 (4.6-8.0) Ur Specific [place] 1.025 (1.005-1.030) Urine Protein Trace A (Negative) Urine Glucose (UA) 250 A (Negative) mg/dL Urine Ketones 15 A (Negative) Urine Blood Negative (Negative) Urine Nitrite Negative (Negative) Urine Bilirubin Negative (Negative) Urine Urobilinogen 1.0 A (0.2) mg/dL Ur Leukocyte Esterase Trace A (Negative) U Hyaline Cast (Auto) NONE SEEN (0-2) /LPF Urine Microscopic RBC 0-2 (0-5) /HPF Urine Microscopic WBC 11-20 A (0-5) /HPF Ur Epithelial Cells Many A (None Seen) /HPF Urine Bacteria Many A (None Seen) /HPF Urine Culture Reflexed YES (NO) Urine HCG, Qual (NEGATIVE) Influenza Type A Ag (NEGATIVE) Influenza Type B Ag (NEGATIVE) RSV (PCR) (NEGATIVE) SARS-CoV-2 (PCR) (NEGATIVE) Group A Strep Antibody (NEGATIVE) - Progress Progress: improved, re-examined Progress Note: 12/17/22 14:48 This patient's medical issue is 1 of low complexity. Level of complexity and the work-up performed is based on review of the patient's past medical history, review the patient's medication list, review of the patient's drug allergy list, history present illness and physical findings on examination. The work-up in this patient includes a urinalysis, viral studies and group a strep test as well as test. Patient work-up results were reviewed by me. Patient has patient will be given 1 g Rocephin intramuscularly here in the emergency department followed by outpatient antibiotics. She will be encouraged to increase her fluid intake. We will send a prescription of antinausea medicine to her pharmacy as well. Counseled pt/family regarding: lab results, diagnosis, need for follow-up Medical Desision Making - Diagnostic Testing Diagnostic test were ordered, analyzed, and reviewed by me: Yes - Risk of complications The pt has a mod risk of morbidity or mortality based on: Need for prescription drug management - Departure Departure Disposition: Home Clinical Impression: Urinary tract infection, Mild dehydration Condition: Stable Critical Care Time: No Referrals: FARSHAD PICHARDO [Primary Care Provider] - Follow up/PCP as directed Additional Instructions: Drink plenty of clear liquids. Take your antibiotics and other medication as prescribed. Follow-up with your primary care provider for further evaluation management. Forms: Work/School Release Form Prescriptions: Ondansetron ODT 4 MG [Zofran Odt 4 mg] 4 mg PO Q6H PRN PRN #10 tablet PRN Reason: Vomiting Smz/Tmp Ds Tablet [Bactrim Ds Tablet] 1 udtab PO BID #14 tablet
[2022-12-17 13:32] VITALS: O2SAT 96
[2022-12-17] MEDS ORDERED: ZOFRAN ODT 4 MG PO ONE (13:46)
[2022-12-17] MEDS ORDERED: ZOFRAN ODT 4 MG ONE (13:49)
[2022-12-17 14:06] LABS: HCG URINE TEST NEGATIVE (NEGATIVE)
[2022-12-17 14:13] LABS: Appearance Cloudy (Clear); Bacteria Many /HPF (None Seen); Bilirubin Negative (Negative); Blood Negative (Negative); Epithelial Cells Many /HPF (None Seen); Glucose, Urine 250 mg/dL (Negative); Hyaline Casts NONE SEEN /LPF (0-2); Ketones 15 (Negative); Leukocyte Esterase Trace (Negative); Nitrite Negative (Negative); Ph 6.5 (4.6-8.0); Protein,Urine Dip Trace (Negative); RBC 0-2 /HPF (0-5); Specific Gravity 1.025 (1.005-1.030)
[2022-12-17 14:32] LABS: ADD URINE CULTURE? YES (NO)
[2022-12-17 14:35] VITALS: BP 126/75; PULSE 67
[2022-12-17] MEDS ORDERED: Rocephin 1000 MG INJ IM ONE (14:35)
[2022-12-17 14:36] LABS: INFLUENZA A NEGATIVE (NEGATIVE); INFLUENZA B NEGATIVE (NEGATIVE); RESPIRATORY SYNCTIAL VIRUS NEGATIVE (NEGATIVE); SARS-CoV-2 Xpert Express NEGATIVE (NEGATIVE)
[2022-12-17] MEDS ORDERED: Rocephin 1000 MG INJ ONE (14:38)
[2022-12-17] MEDS ORDERED: XYLOCAINE 1% HCL 20 ML MDV ONE (14:38)
== END 2022-12-17 15:08 | disposition home or self-care (01) ==
LOC: ED 13:18
DX: N39.0 Urinary tract infection, site not specified (principal); E86.0 Dehydration; R52 Pain, unspecified; E11.9 Type 2 diabetes mellitus without complications; Z79.84 Long term (current) use of oral hypoglycemic drugs; Z79.899 Other long term (current) drug therapy; Z28.310 Unvaccinated for COVID-19
CPT/HCPCS: 0241U; 81001; 81025; 87086; 87651; 96372; 99283; J0696; Q0162

== ENCOUNTER 2023-07-07 16:58 | Emergency (ER) | payer BC ==
[2023-07-07 17:08] VITALS: RESP 18; TEMP 97.6
--- NOTE | 2023-07-07 17:31 | ERPHSYRPT ---
- History of Present Illness Source: patient Exam Limitations: other ([place]) Patient Subjective Stated Complaint: Pt states "I woke up this morning and I felt tired and drained. I was at work and I just did not feel well." Triage Nursing Assessment: Pt presented alert and oriented x 3, skin pwd. Pt ambulates with an upright steady gait, able to speak in clear full sentences. PT resting comfortable. Physician History: 37-year-old female with chief complaint of frontal headache since 8 AM, nausea, and malaise. Patient states she does not feel well. She denies cough, fever, vomiting, chest pain, abdominal pain, dysuria, hematuria, and . She denies any focal weakness and states that her headache pain is 4 out of 10 feels like pressure. Timing/Duration: other ( 8 AM) Quality: pressure Head Pain Location: frontal Severity of Pain-Max: moderate Severity of Pain-Current: moderate Recent Head Trauma: no recent headache/trauma Associated Symptoms: denies symptoms Previous symptoms: no prior history Allergies/Adverse Reactions: nickel Allergy (Verified 12/17/22 13:28) amoxicillin Adverse Reaction (Severe, Verified 12/17/22 13:28) nausea and severe vomiting Home Medications: Metformin HCl [Metformin ER Gastric] 1 ea PO BID 03/11/21 [History] Venlafaxine HCl [Venlafaxine HCl ER] 75 mg PO HS 10/06/22 [History] Empagliflozin [Jardiance] 25 mg PO DAILY 10/23/22 [History] Hx Tetanus, Diphtheria Vaccination/Date Given: Yes Hx Influenza Vaccination/Date Given: No Hx Pneumococcal Vaccination/Date Given: No Immunizations Up to Date: No Travel Risk - International Travel Have you traveled outside of the country in past 3 weeks: No - Coronavirus Screening Are you exhibiting any of the following symptoms?: Yes Symptoms: Headaches/Body Aches/Fatigue Close contact with a COVID-19 positive Pt in past 14-21 Days: No - Vaccine Status Have you recieved a Covid-19 vaccination: No - Review of Systems Constitutional: No Symptoms Eyes: No Symptoms Ears, Nose, & Throat: No Symptoms Respiratory: No Symptoms Cardiac: No Symptoms Abdominal/Gastrointestinal: No Symptoms Genitourinary Symptoms: No Symptoms Musculoskeletal: No Symptoms Skin: No Symptoms Neurological: No Symptoms, Headache Psychological: No Symptoms Endocrine: No Symptoms Hematologic/Lymphatic: No Symptoms Immunological/Allergic: No Symptoms - Past Medical History Pertinent Past Medical History: Yes Neurological History: No Pertinent History ENT History: No Pertinent History Cardiac History: No Pertinent History Respiratory History: No Pertinent History Endocrine Medical History: No Pertinent History Musculoskeletal History: No Pertinent History GI Medical History: No Pertinent History History: No Pertinent History Psycho-Social History: Anxiety, Depression Female Reproductive Disorders: No Pertinent History - Past Surgical History Past Surgical History: Yes Neuro Surgical History: No Pertinent History Cardiac: No Pertinent History Respiratory: No Pertinent History Gastrointestinal: No Pertinent History Genitourinary: No Pertinent History Musculoskeletal: No Pertinent History Female Surgical History: Section - Social History Smoking Status: Former smoker How long have you smoked: 1 Exposure to second hand smoke: No Drug Use: none Patient Lives Alone: No - Female History Hx Last Menstrual Period: 06/24/2023 Hx Now: No - Nursing Vital Signs Nursing Vital Signs: Initial Vital Signs Temperature 97.6 F 07/07/23 17:03 Pulse Rate 79 07/07/23 17:03 Respiratory Rate 18 07/07/23 17:03 Blood Pressure 119/86 07/07/23 17:03 O2 Sat by Pulse Oximetry 95 07/07/23 17:03 Pain Scale Pain Intensity 3 within normal limits - Physical Exam General Appearance: no apparent distress Eye Exam: PERRL/EOMI, eyes nml inspection Ears, Nose, Throat Exam: normal ENT inspection, TMs normal, pharynx normal, moist mucous membranes Neck Exam: normal inspection, non-tender, supple, full range of motion, No meningismus, No mass, No Brudzinski, No Kernig's Respiratory Exam: normal breath sounds, lungs clear, airway intact Cardiovascular Exam: regular rate/rhythm, normal heart sounds, normal peripheral pulses, capillary refill <2 sec, No murmur Gastrointestinal/Abdominal Exam: soft, normal bowel sounds, No tenderness Back Exam: normal inspection Extremity Exam: normal inspection, normal range of motion Mental Status Exam: alert, oriented x 3, 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 Exam: normal hearing, normal speech, PERRL Coordination/Gait Exam: normal gait, normal cerebellar function Motor/Sensory Exam: no motor deficit, no sensory deficit, no pronator drift DTR Exam: bicep (R): 2+, bicep (L): 2+ Skin Exam: normal color, warm, dry Lymphatic Exam: No adenopathy SpO2 Interpretation: normal SpO2: 95 O2 Delivery: Room Air - Course Nursing assessment & vital signs reviewed: Yes - CT Exams Head CT Interpretation: Tele-radiologist Report (Nothing acute) Ordered Tests: Active Orders 24 hr Category Date Time Status HEAD WITHOUT CONTRAST [CT] Stat Exams 07/07/23 17:26 Completed POCT GLUCOSE Stat Lab 07/07/23 17:44 Completed Lab/Rad Data: Laboratory Results 07/07/23 07/07/23 Range/Units 17:44 17:30 POC Glucometer 143 H (74 to 106) mg/dL Influenza Type A Ag NEGATIVE (NEGATIVE) Influenza Type B Ag NEGATIVE (NEGATIVE) RSV (PCR) NEGATIVE (NEGATIVE) SARS-CoV-2 (PCR) NEGATIVE (NEGATIVE) - Progress Progress: improved Progress Note: 07/07/23 19:18 Nursing note and vital signs reviewed. No food or housing insecurity noted. All lab results reviewed and shared with patient. CT of the head result reviewed and shared with patient. Etiology of patient's headache is unknown at this time, but it could be due to a virus. Serial neurologic exams negative and there is no focal weakness while in the ER. Patient had no nuchal rigidity and there was no fever while in ER. Patient given 30 mg IM Toradol and discharged. Patient advised to follow- up with her PCP and return to the ER for any focal weakness, worsening pain, or temperature greater 100.5. Counseled pt/family regarding: lab results, diagnosis, rad results Medical Desision Making - Diagnostic Testing Diagnostic test were ordered, analyzed, and reviewed by me: Yes Radiological Interpretation: Teleradiologist Report - Risk of complications Low Risk: Low risk of morbidity from additional dx testing or treatment - Departure Departure Disposition: Home Clinical Impression: Headache Condition: Stable Critical Care Time: No Referrals: FARSHAD PICHARDO [Primary Care Provider] - Follow up/PCP as directed Instructions: Headache, Adult (DC) Additional Instructions: Follow-up with your family MD as needed Return to ER for increasing pain, focal weakness, or temperature greater 100.5.
[2023-07-07 18:12] VITALS: PULSE 83
[2023-07-07 18:23] LABS: INFLUENZA A NEGATIVE (NEGATIVE); INFLUENZA B NEGATIVE (NEGATIVE); RESPIRATORY SYNCTIAL VIRUS NEGATIVE (NEGATIVE); SARS-CoV-2 Xpert Express NEGATIVE (NEGATIVE)
--- NOTE | 2023-07-07 19:09 | XRAY ---
CLINICAL HISTORY: [facility] TECHNIQUE: Non-enhanced CT scan of the brain in axial plane with multiplanar reconstructions. COMPARISON: None. FINDINGS: Normal CT attenuation of both cerebral hemispheres with no areas of abnormal attenuation values. No suspicious space-occupying lesions. No intra or extra-axial collections of fresh blood density. Normal size and shape of the ventricles, basal cisterns and cortical sulci. Basal ganglia, thalamus and internal capsule appear normal. Brainstem and mary appear normal. No shift of midline structures. Unremarkable posterior fossa. Largely preserved cranial calvarial bones. Visualized paranasal sinuses appear clear. IMPRESSION: 1. No acute intracranial abnormality. 2. Unremarkable study of CT brain. 3. Clinical correlation is suggested. Electronically Signed by: Javi Turner MD. (07/07/2023 19:05:49 EST)
[2023-07-07] MEDS ORDERED: TORAdol 30 mg Injection IM ONE (19:16)
[2023-07-07] MEDS ORDERED: TORAdol 30 mg Injection ONE (19:30)
[2023-07-07 20:07] VITALS: BP 121/92; O2SAT 97
== END 2023-07-07 20:08 | disposition home or self-care (01) ==
LOC: ED 16:58
DX: R51.9 Headache, unspecified (principal); R11.0 Nausea; R53.81 Other malaise; Z79.84 Long term (current) use of oral hypoglycemic drugs; Z79.899 Other long term (current) drug therapy; Z28.310 Unvaccinated for COVID-19
CPT/HCPCS: 0241U; 70450; 82947; 96372; 99284; J1885

== ENCOUNTER 2023-08-08 17:09 | Emergency (ER) | payer BC ==
[2023-08-08 17:28] VITALS: TEMP 99; O2SAT 97
[2023-08-08] MEDS ORDERED: TYLENOL EXTRA STRENGTH 500 MG ONE (17:32)
[2023-08-08] MEDS: TYLENOL EXTRA STRENGTH 500 MG PO STA (17:33)
[2023-08-08 18:21] LABS: INFLUENZA B NEGATIVE (NEGATIVE); RESPIRATORY SYNCTIAL VIRUS NEGATIVE (NEGATIVE); SARS-CoV-2 Xpert Express NEGATIVE (NEGATIVE)
[2023-08-08 18:22] LABS: INFLUENZA A POSITIVE (NEGATIVE)
[2023-08-08 18:42] VITALS: BP 120/74; PULSE 98
--- NOTE | 2023-08-08 18:44 | ERPHSYRPT ---
- History of Present Illness Time Seen by Provider: 08/08/23 17:30 Source: patient Exam Limitations: no limitations Patient Subjective Stated Complaint: all over body aches Triage Nursing Assessment: Pt drove self to the ER, tachycardic, rates overall generalized pain as 3/10, pulses normal, skin n/w/d, began aching all over just today, daughter just had flu A, no difficulty breathing, doesn't appear to be in any distress Physician History: 37-year-old female presents to our ED with a 1 day history of bodyaches. Patient concerned she may have the flu. Patient's daughter recently diagnosed with the flu. No nausea no vomiting no diarrhea no rash. No chest pain or shortness of breath. Symptoms are mild to moderate in intensity. No specific worsening or improving factors. Patient states otherwise healthy. She voices no other complaints or concerns at this time. Portions of this note were created with voice recognition technology. There may be grammatical, spelling, punctuation or sound alike errors Timing/Duration: today Severity: moderate Modifying Factors: Improves With: nothing Associated Symptoms: denies symptoms Allergies/Adverse Reactions: nickel Allergy (Verified 08/08/23 17:29) amoxicillin Adverse Reaction (Severe, Verified 08/08/23 17:29) nausea and severe vomiting Home Medications: Metformin HCl [Metformin ER Gastric] 1 ea PO BID 03/11/21 [History] Venlafaxine HCl [Venlafaxine HCl ER] 75 mg PO HS 10/06/22 [History] Hx Tetanus, Diphtheria Vaccination/Date Given: Yes Hx Influenza Vaccination/Date Given: No Hx Pneumococcal Vaccination/Date Given: No Travel Risk - International Travel Have you traveled outside of the country in past 3 weeks: No - Coronavirus Screening Are you exhibiting any of the following symptoms?: Yes Symptoms: Headaches/Body Aches/Fatigue Close contact with a COVID-19 positive Pt in past 14-21 Days: No - Vaccine Status Have you recieved a Covid-19 vaccination: No - Review of Systems Constitutional: No Symptoms, No Fever, No Chills Eyes: No Symptoms Ears, Nose, & Throat: No Symptoms Respiratory: No Symptoms, No Cough, No Dyspnea Cardiac: No Symptoms, No Chest Pain, No Edema, No Syncope Abdominal/Gastrointestinal: No Symptoms, No Abdominal Pain, No Nausea, No Vomiting, No Diarrhea Genitourinary Symptoms: No Symptoms, No Dysuria Musculoskeletal: No Symptoms, No Back Pain, No Neck Pain Skin: No Symptoms, No Rash Neurological: No Symptoms, No Dizziness, No Focal Weakness, No Sensory Changes Psychological: No Symptoms Endocrine: No Symptoms Hematologic/Lymphatic: No Symptoms Immunological/Allergic: No Symptoms All Other Systems: Reviewed and Negative - Past Medical History Pertinent Past Medical History: Yes Neurological History: No Pertinent History ENT History: No Pertinent History Cardiac History: No Pertinent History Respiratory History: No Pertinent History Endocrine Medical History: No Pertinent History Musculoskeletal History: No Pertinent History GI Medical History: No Pertinent History History: No Pertinent History Psycho-Social History: Anxiety, Depression Female Reproductive Disorders: No Pertinent History - Past Surgical History Past Surgical History: Yes Neuro Surgical History: No Pertinent History Cardiac: No Pertinent History Respiratory: No Pertinent History Gastrointestinal: No Pertinent History Genitourinary: No Pertinent History Musculoskeletal: No Pertinent History Female Surgical History: Section - Social History Smoking Status: Former smoker How long have you smoked: 1 Exposure to second hand smoke: No Drug Use: none Patient Lives Alone: No - Female History Hx Last Menstrual Period: middle of last month Hx Now: No - Nursing Vital Signs Nursing Vital Signs: Initial Vital Signs Temperature 99.0 F 08/08/23 17:20 Pulse Rate 110 H 08/08/23 17:20 Blood Pressure 123/73 08/08/23 17:20 O2 Sat by Pulse Oximetry 97 08/08/23 17:20 Pain Scale Pain Intensity [Anterior/ 3 Posterior Generalized] Pain Intensity 3 - Physical Exam General Appearance: no apparent distress, alert Eye Exam: PERRL/EOMI, eyes nml inspection Ears, Nose, Throat Exam: normal ENT inspection, TMs normal, pharynx normal, moist mucous membranes Neck Exam: normal inspection, non-tender, supple, full range of motion Respiratory Exam: normal breath sounds, lungs clear, airway intact, No respiratory distress Cardiovascular Exam: regular rate/rhythm, normal heart sounds, normal peripheral pulses Gastrointestinal/Abdomen Exam: soft, normal bowel sounds, No tenderness, No mass Back Exam: normal inspection, normal range of motion, No CVA tenderness, No vertebral tenderness Extremity Exam: normal inspection, normal range of motion, pelvis stable Neurologic Exam: alert, oriented x 3, cooperative, normal mood/affect, sensation nml, No motor deficits Skin Exam: normal color, warm, dry, No rash Lymphatic Exam: No adenopathy SpO2 Interpretation: normal SpO2: 97 O2 Delivery: Room Air - Course Nursing assessment & vital signs reviewed: Yes Ordered Tests: Medication Summary Discontinued Medications Generic Name Dose Route Start Last Admin Trade Name Tru PRN Reason Stop Dose Admin Acetaminophen 1,000 mg 08/08/23 17:28 08/08/23 17:33 Acetaminophen 500 Mg Tablet PO 08/08/23 17:29 1,000 mg STAT STA Administration Acetaminophen Confirm 08/08/23 17:32 Acetaminophen 500 Mg Tablet Administered 08/08/23 17:33 Dose 1,000 mg .ROUTE .[employer] Lab/Rad Data: Laboratory Results 08/08/23 Range/Units 17:40 Influenza Type A Ag POSITIVE A (NEGATIVE) Influenza Type B Ag NEGATIVE (NEGATIVE) RSV (PCR) NEGATIVE (NEGATIVE) SARS-CoV-2 (PCR) NEGATIVE (NEGATIVE) - Progress Progress: improved Progress Note: 37-year-old female presents to our ED with bodyaches. Patient concerned with influenza A as her daughter recently diagnosed with influenza. Patient has no other complaints. Physical exam otherwise negative. COVID testing reveals influenza A positive. Patient received Tylenol in our ED. Patient resting comfortably. In no distress. No indication for further workup. Will discharge home. Patient agrees to follow-up with her primary care doctor within 48 hours for reevaluation. Portions of this note were created with voice recognition technology. There may be grammatical, spelling, punctuation or sound alike errors Complexity problem addressed is moderate acute complicated No critical care time Complexity of data reviewed and analyzed is moderate. Test ordered test reviewed. Results analyzed and correlated clinically with history and physical exam. Risk complication and or risk morbidity/mortality patient management is low Vital stable. Time spent to discharge patient approximately 10 minutes. Plan of care established for shared decision making. No social determinants of health present impede follow-up. Portions of this note were created with voice recognition technology. There may be grammatical, spelling, punctuation or sound alike errors 08/08/23 18:47 Counseled pt/family regarding: lab results, diagnosis, need for follow-up - Departure Departure Disposition: Home Clinical Impression: Influenza A, Viral syndrome Condition: Stable Critical Care Time: No Referrals: FARSHAD PICHARDO [Primary Care Provider] - Follow up/PCP as directed Additional Instructions: Discharge/Care Plan LANETTE GARZA was seen on 08/08/23 in the Emergency Room. The patient was counseled regarding Diagnosis,Lab results, Imaging studies, need for follow up and when to return to the Emergency Room. Prescriptions given: Discharge Note I have spoken with the patient and/or caregivers. I have explained the patient's condition, diagnosis and treatment plan based on the information available to me at this time. I have answered the patient's and/or caregiver's questions and addressed any concerns. The patient and/or caregivers have as good understanding of the patient's diagnosis, condition and treatment plan as can be expected at this point. The vital signs have been stable. The patient's condition is stable and appropriate for discharge from the emergency department. The patient will pursue further outpatient evaluation with the primary care physician or other designated or consulting physician as outlined in the discharge instructions. The patient and/or caregivers are agreeable to this plan of care and follow-up instructions have been explained in detail. The patient and/or caregivers have received these instruction. The patient/and or caregivers are aware that any significant change in condition or worsening of symptoms should prompt an immediate return to this or the closest emergency department or call 911.
== END 2023-08-08 18:47 | disposition home or self-care (01) ==
LOC: ED 17:09
DX: J10.1 Influenza due to other identified influenza virus with other respiratory manifestations (principal); M79.10 Myalgia, unspecified site; Z79.84 Long term (current) use of oral hypoglycemic drugs; Z79.899 Other long term (current) drug therapy; Z28.310 Unvaccinated for COVID-19
CPT/HCPCS: 0241U; 99282; A9270-GY

== ENCOUNTER 2024-01-02 15:37 | Emergency (ER) | payer BC ==
[2024-01-02 15:54] VITALS: TEMP 98.3; O2SAT 99
--- NOTE | 2024-01-02 16:18 | ERPHSYRPT ---
- History of Present Illness Time Seen by Provider: 01/02/24 15:55 Source: patient Exam Limitations: no limitations Patient Subjective Stated Complaint: pt states that she thought she had a fever at work Triage Nursing Assessment: pt ambulated into the er; pt is axo x4; c/o fever; pt is afebrile on arrival; c/o diarrhea; pt denies vomiting, c/o nausea; active bowel sounds in all quads; skin PDW; no respiratory distress present; vitals wnl Physician History: 38-year-old female history of diabetes presents to our ED for evaluation of feeling unwell. Patient complained of a subjective fever. Patient has been experiencing diarrhea for the past couple days. Patient denies pain. Patient symptoms are mild to moderate in intensity. No specific worsening or improving factors. 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 Patient does not check her blood glucose regularly. No associated rash. No vomiting. No chest pain or shortness of breath. Patient voices no other complaints or concerns at this time Portions of this note were created with voice recognition technology. There may be grammatical, spelling, punctuation or sound alike errors Timing/Duration: today Severity: moderate Modifying Factors: Improves With: nothing Associated Symptoms: denies symptoms Allergies/Adverse Reactions: nickel Allergy (Verified 01/02/24 15:44) amoxicillin Adverse Reaction (Severe, Verified 01/02/24 15:44) nausea and severe vomiting Home Medications: Metformin HCl [Metformin ER Gastric] 1 ea PO BID 03/11/21 [History] Venlafaxine HCl [Venlafaxine HCl ER] 75 mg PO HS 10/06/22 [History] Hx Tetanus, Diphtheria Vaccination/Date Given: No Hx Influenza Vaccination/Date Given: No Hx Pneumococcal Vaccination/Date Given: No Travel Risk - International Travel Have you traveled outside of the country in past 3 weeks: No - Emerging Infectious Disease Are you exhibiting symptoms associated with any current EIDs: Yes Symptoms: Abdominal Pain, Diarrhea, Fever - Review of Systems Constitutional: No Symptoms, No Fever, No Chills Eyes: No Symptoms Ears, Nose, & Throat: No Symptoms Respiratory: No Symptoms, No Cough, No Dyspnea Cardiac: No Symptoms, No Chest Pain, No Edema, No Syncope Abdominal/Gastrointestinal: No Symptoms, No Abdominal Pain, No Nausea, No Vomiting, No Diarrhea Genitourinary Symptoms: No Symptoms, No Dysuria Musculoskeletal: No Symptoms, No Back Pain, No Neck Pain Skin: No Symptoms, No Rash Neurological: No Symptoms, No Dizziness, No Focal Weakness, No Sensory Changes Psychological: No Symptoms Endocrine: No Symptoms Hematologic/Lymphatic: No Symptoms Immunological/Allergic: No Symptoms All Other Systems: Reviewed and Negative - Past Medical History Pertinent Past Medical History: Yes Neurological History: No Pertinent History ENT History: No Pertinent History Cardiac History: No Pertinent History Respiratory History: No Pertinent History Endocrine Medical History: No Pertinent History Musculoskeletal History: No Pertinent History GI Medical History: No Pertinent History History: No Pertinent History Psycho-Social History: Anxiety, Depression Female Reproductive Disorders: No Pertinent History - Past Surgical History Past Surgical History: Yes Neuro Surgical History: No Pertinent History Cardiac: No Pertinent History Respiratory: No Pertinent History Gastrointestinal: No Pertinent History Genitourinary: No Pertinent History Musculoskeletal: No Pertinent History Female Surgical History: Section - Female History Hx Now: No - Social History Smoking Status: Former smoker How long have you smoked: 1 Exposure to second hand smoke: Yes Drug Use: none Patient Lives Alone: No - Social Determinants of Health Will the patient participate in the screening: Yes Do you worry about a steady place to live?: No Do you have any problems with any of the following?: No known problems In the past 12 months,have you had to go without utilities?: No Transportation Issues: No Has anyone in your support network made you feel unsafe?: No Have you or anyone in your house had to go without enough: No - Nursing Vital Signs Nursing Vital Signs: Initial Vital Signs Pulse Rate 68 01/02/24 15:42 Blood Pressure 127/83 01/02/24 15:42 O2 Sat by Pulse Oximetry 99 01/02/24 15:42 Pain Scale Pain Intensity 0 - Physical Exam General Appearance: no apparent distress, alert Eye Exam: PERRL/EOMI, eyes nml inspection Ears, Nose, Throat Exam: normal ENT inspection, TMs normal, pharynx normal, moist mucous membranes Neck Exam: normal inspection, non-tender, supple, full range of motion Respiratory Exam: normal breath sounds, lungs clear, No respiratory distress Cardiovascular Exam: regular rate/rhythm, normal heart sounds, normal peripheral pulses Gastrointestinal/Abdomen Exam: soft, normal bowel sounds, No tenderness, No mass Back Exam: normal inspection, normal range of motion, No CVA tenderness, No vertebral tenderness Extremity Exam: normal inspection, normal range of motion, pelvis stable Neurologic Exam: alert, oriented x 3, cooperative, normal mood/affect, nml cerebellar function, nml station & gait, sensation nml, No motor deficits Skin Exam: normal color, warm, dry, No rash Lymphatic Exam: No adenopathy SpO2 Interpretation: normal SpO2: 99 O2 Delivery: Room Air - Course Nursing assessment & vital signs reviewed: Yes Ordered Tests: Active Orders 24 hr Category Date Time Status IV Insertion STAT Care 01/02/24 16:17 Active CBC W DIFF Stat Lab 01/02/24 16:17 Completed CMP Stat Lab 01/02/24 16:40 Completed CULTURE,URINE Stat Lab 01/02/24 17:30 Received HCG QUALITATIVE, URINE Stat Lab 01/02/24 17:30 Completed TROPONIN Q4H Lab 01/02/24 16:40 Completed TROPONIN Q4H Lab 01/02/24 20:30 Ordered TROPONIN Q4H Lab 01/03/24 00:30 Ordered UA W/RFX UR CULTURE Stat Lab 01/02/24 17:30 Completed Medication Summary Discontinued Medications Generic Name Dose Route Start Last Admin Trade Name Freq PRN Reason Stop Dose Admin Sodium Chloride 1,000 mls @ 999 mls/hr 01/02/24 16:17 01/02/24 17:49 Sodium Chloride 0.9% 1000 Ml IV 01/02/24 17:17 Infused .Q1H1M STA Infusion Sodium Chloride Confirm 01/02/24 16:43 Sodium Chloride 0.9% 1000 Ml Administered 01/02/24 16:44 Dose 1,000 mls @ ud .ROUTE .STK-MED ONE Ketorolac Tromethamine 30 mg 01/02/24 16:17 01/02/24 16:46 Ketorolac Tromethamine 30 Mg/Ml Inj IV 01/02/24 16:18 30 mg STAT ONE Administration Ketorolac Tromethamine Confirm 01/02/24 16:43 Ketorolac Tromethamine 30 Mg/Ml Inj Administered 01/02/24 16:44 Dose 30 mg .ROUTE .[employer] Nitrofurantoin Macrocrystals 100 mg 01/02/24 18:03 Nitrofurantoin Macro 100 Mg Capsule PO 01/02/24 18:04 STAT ONE Lab/Rad Data: Laboratory Result Diagrams 01/02/24 16:17 01/02/24 16:40 Laboratory Results 01/02/24 01/02/24 01/02/24 Range/Units 17:30 17:30 16:40 WBC (3.98-10.04) x10^3/uL RBC (3.93-5.22) x10^6/uL Hgb (11.2-15.7) g/dL Hct (34.1-44.9) % MCV (79.4-94.8) fL MCH (25.6-32.2) pg MCHC (32.2-35.5) g/dL RDW (11.7-14.4) % Plt Count (182-369) x10^3/uL MPV (9.4-12.3) fL Gran % (34.0-71.1) % Immature Gran % (Auto) (0.001-0.429) % Nucleat RBC Rel Count (0.00-0.2) % Eos # (Auto) (0.04-0.36) x10^3/uL Immature Gran # (Auto) (0.001-0.031) x10^3u/L Absolute Lymphs (auto) (1.18-3.74) x10^3/uL Absolute Monos (auto) (0.24-0.86) x10^3/uL Absolute Nucleated RBC (0.00-0.012) x10^3u/L Lymphocytes % (19.3-51.7) % Monocytes % (4.7-12.5) % Eosinophils % (0.7-5.8) % Basophils % (0.1-1.2) % Absolute Granulocytes (1.56-6.13) x10^3/uL Basophils # (0.01-0.08) x10^3/uL Sodium (135-145) mmol/L Potassium (3.5-5.1) mmol/L Chloride (98-107) mmol/L Carbon Dioxide (22-30) mmol/L Anion Gap (5-15) MEQ/L BUN (7-17) mg/dL Creatinine (0.52-1.04) mg/dL Estimated GFR ML/MIN Glucose (74-106) mg/dL Calcium (8.4-10.2) mg/dL Total Bilirubin (0.2-1.3) mg/dL AST (14-36) U/L ALT (0-35) U/L Alkaline Phosphatase (38-126) U/L Troponin I (0.000-0.033) ng/mL Serum Total Protein (6.3-8.2) g/dL Albumin (3.5-5.0) g/dL Urine Color Yellow (Yellow) Urine Appearance Clear (Clear) Urine pH 6.0 (4.6-8.0) Ur Specific [place] 1.025 (1.005-1.030) Urine Protein Negative (Negative) Urine Glucose (UA) >=1000 A (Negative) mg/dL Urine Ketones 40 A (Negative) Urine Blood Negative (Negative) Urine Nitrite Negative (Negative) Urine Bilirubin Negative (Negative) Urine Urobilinogen 1.0 A (0.2) mg/dL Ur Leukocyte Esterase Negative (Negative) U Hyaline Cast (Auto) NONE SEEN (0-2) /LPF Urine Microscopic RBC 0-2 (0-5) /HPF Urine Microscopic WBC 6-10 A (0-5) /HPF Ur Epithelial Cells Moderate A (None Seen) /HPF Urine Bacteria Moderate A (None Seen) /HPF Urine Culture Reflexed YES (NO) Urine HCG, Qual NEGATIVE (NEGATIVE) Influenza Type A Ag NEGATIVE (NEGATIVE) Influenza Type B Ag NEGATIVE (NEGATIVE) RSV (PCR) NEGATIVE (NEGATIVE) SARS-CoV-2 (PCR) NEGATIVE (NEGATIVE) 01/02/24 01/02/24 01/02/24 Range/Units 16:40 16:40 16:17 WBC 7.6 (3.98-10.04) x10^3/uL RBC 4.68 (3.93-5.22) x10^6/uL Hgb 13.1 (11.2-15.7) g/dL Hct 38.8 (34.1-44.9) % MCV 82.9 (79.4-94.8) fL MCH 28.0 (25.6-32.2) pg MCHC 33.8 (32.2-35.5) g/dL RDW 12.9 (11.7-14.4) % Plt Count 298 (182-369) x10^3/uL MPV 10.0 (9.4-12.3) fL Gran % 63.7 (34.0-71.1) % Immature Gran % (Auto) 0.1 (0.001-0.429) % Nucleat RBC Rel Count 0.0 (0.00-0.2) % Eos # (Auto) 0.11 (0.04-0.36) x10^3/uL Immature Gran # (Auto) 0.01 (0.001-0.031) x10^3u/L Absolute Lymphs (auto) 2.07 (1.18-3.74) x10^3/uL Absolute Monos (auto) 0.51 (0.24-0.86) x10^3/uL Absolute Nucleated RBC 0.00 (0.00-0.012) x10^3u/L Lymphocytes % 27.3 (19.3-51.7) % Monocytes % 6.7 (4.7-12.5) % Eosinophils % 1.4 (0.7-5.8) % Basophils % 0.8 (0.1-1.2) % Absolute Granulocytes 4.83 (1.56-6.13) x10^3/uL Basophils # 0.06 (0.01-0.08) x10^3/uL Sodium 138 (135-145) mmol/L Potassium 3.6 (3.5-5.1) mmol/L Chloride 103 (98-107) mmol/L Carbon Dioxide 24 (22-30) mmol/L Anion Gap 13.3 (5-15) MEQ/L BUN 18 H (7-17) mg/dL Creatinine 0.44 L (0.52-1.04) mg/dL Estimated GFR 128.5 ML/MIN Glucose 139 H (74-106) mg/dL Calcium 9.6 (8.4-10.2) mg/dL Total Bilirubin 0.30 (0.2-1.3) mg/dL AST 30 (14-36) U/L ALT 31 (0-35) U/L Alkaline Phosphatase 67 (38-126) U/L Troponin I < 0.012 (0.000-0.033) ng/mL Serum Total Protein 7.5 (6.3-8.2) g/dL Albumin 4.6 (3.5-5.0) g/dL Urine Color (Yellow) Urine Appearance (Clear) Urine pH (4.6-8.0) Ur Specific [place] (1.005-1.030) Urine Protein (Negative) Urine Glucose (UA) (Negative) mg/dL Urine Ketones (Negative) Urine Blood (Negative) Urine Nitrite (Negative) Urine Bilirubin (Negative) Urine Urobilinogen (0.2) mg/dL Ur Leukocyte Esterase (Negative) U Hyaline Cast (Auto) (0-2) /LPF Urine Microscopic RBC (0-5) /HPF Urine Microscopic WBC (0-5) /HPF Ur Epithelial Cells (None Seen) /HPF Urine Bacteria (None Seen) /HPF Urine Culture Reflexed (NO) Urine HCG, Qual (NEGATIVE) Influenza Type A Ag (NEGATIVE) Influenza Type B Ag (NEGATIVE) RSV (PCR) (NEGATIVE) SARS-CoV-2 (PCR) (NEGATIVE) - Progress Progress: improved Progress Note: 38-year-old female presents to our ED for evaluation of feeling unwell. Subjective fever at home. Patient admits to diarrhea. Physical exam essentially nonremarkable. Workup reveals a dehydration. IV fluids infused. UA suggest urinary tract infection. Patient received a dose of Macrobid in our ED. A prescription for the same was forwarded to patient's pharmacy. Patient reassessed. She feels better. Patient that she is ready for discharge. No indication for further workup at this time. Will discharge home. Patient agrees to follow-up with her primary care doctor within 48 hours for reevaluation. Portions of this note were created with voice recognition technology. There may be grammatical, spelling, punctuation or sound alike errors Complexity problem addressed is moderate acute complicated. No critical care time. Complex of data reviewed and analyzed is moderate. Test ordered test reviewed results analyzed and correlated clinically with history and physical exam. Risk of complication and or risk of morbidity/mortality patient management is moderate. A prescription for Macrobid forwarded to patient's pharmacy. Vital stable. Time spent to discharge patient approximately 10 minutes. Plan of care established for shared decision making. No social determinants of health present impede follow-up. Portions of this note were created with voice recognition technology. There may be grammatical, spelling, punctuation or sound alike errors 01/02/24 18:05 Counseled pt/family regarding: lab results, diagnosis, need for follow-up - Departure Departure Disposition: Home Clinical Impression: Dehydration, UTI (urinary tract infection) Condition: Stable Critical Care Time: No Referrals: FARSHAD PICHARDO [Primary Care Provider] - Follow up/PCP as directed Additional Instructions: Discharge/Care Plan LANETTE GARZA was seen on 01/02/24 in the Emergency Room. The patient was counseled regarding Diagnosis,Lab results, Imaging studies, need for follow up and when to return to the Emergency Room. Prescriptions given: Discharge Note I have spoken with the patient and/or caregivers. I have explained the patient's condition, diagnosis and treatment plan based on the information available to me at this time. I have answered the patient's and/or caregiver's questions and addressed any concerns. The patient and/or caregivers have as good understanding of the patient's diagnosis, condition and treatment plan as can be expected at this point. The vital signs have been stable. The patient's condition is stable and appropriate for discharge from the emergency department. The patient will pursue further outpatient evaluation with the primary care physician or other designated or consulting physician as outlined in the discharge instructions. The patient and/or caregivers are agreeable to this plan of care and follow-up instructions have been explained in detail. The patient and/or caregivers have received these instruction. The patient/and or caregivers are aware that any significant change in condition or worsening of symptoms should prompt an immediate return to this or the closest emergency department or call 911. Prescriptions: Nitrofurantoin Macro 100 mg [Macrobid 100MG Capsule] 100 mg PO BID 7 Days #14 cap
[2024-01-02 16:42] LABS: Absolute Neutrophil Ct (ANC) 4.83 x10^3/uL (1.56-6.13); BASOPHIL % 0.8 % (0.1-1.2); Basophil (Absolute #) 0.06 x10^3/uL (0.01-0.08); Eosinophil % 1.4 % (0.7-5.8); Eosinophil (Absolute #) 0.11 x10^3/uL (0.04-0.36); Hematocrit 38.8 % (34.1-44.9); Hemoglobin 13.1 g/dL (11.2-15.7); IMMATURE GRAN # 0.01 x10^3u/L (0.001-0.031); IMMATURE GRAN % 0.1 % (0.001-0.429); Lymphocyte (Absolute #) 2.07 x10^3/uL (1.18-3.74); Lymphocytes % 27.3 % (19.3-51.7); Mean Cell Volume 82.9 fL (79.4-94.8); Mean Corpuscular Hgb Concent. 33.8 g/dL (32.2-35.5); Monocyte (Absolute #) 0.51 x10^3/uL (0.24-0.86); Monocytes % 6.7 % (4.7-12.5); Neutrophil % 63.7 % (34.0-71.1); Platelet Count 298 x10^3/uL (182-369); Red Blood Count 4.68 x10^6/uL (3.93-5.22); Red Cell Distribution Width 12.9 % (11.7-14.4); White Blood Count 7.6 x10^3/uL (3.98-10.04)
[2024-01-02] MEDS ORDERED: Sodium Chloride 0.9% 1000 ML 1,000 ML ONE (16:43)
[2024-01-02] MEDS ORDERED: TORAdol 30 mg Injection ONE (16:43)
[2024-01-02] MEDS: TORAdol 30 mg Injection IV ONE (16:46)
[2024-01-02] MEDS: Sodium Chloride 0.9% 1000 ML 1,000 ML IV STA (16:46)
[2024-01-02 16:55] LABS: ALBUMIN 4.6 g/dL (3.5-5.0); ANION GAP 13.3 MEQ/L (5-15); BILIRUBIN,TOTAL 0.3 mg/dL (0.2-1.3); Calcium 9.6 mg/dL (8.4-10.2); Creatinine 1 0.44 mg/dL (0.52-1.04); EST GLOMERULAR FILTRATION RATE 128.5 ML/MIN; Potassium 3.6 mmol/L (3.5-5.1); Total Protein 7.5 g/dL (6.3-8.2)
[2024-01-02 17:18] LABS: INFLUENZA A NEGATIVE (NEGATIVE); INFLUENZA B NEGATIVE (NEGATIVE); RESPIRATORY SYNCTIAL VIRUS NEGATIVE (NEGATIVE); SARS-CoV-2 Xpert Express NEGATIVE (NEGATIVE)
[2024-01-02 17:39] LABS: HCG URINE TEST NEGATIVE (NEGATIVE)
[2024-01-02 17:42] LABS: Appearance Clear (Clear); Bacteria Moderate /HPF (None Seen); Bilirubin Negative (Negative); Blood Negative (Negative); Epithelial Cells Moderate /HPF (None Seen); Glucose, Urine >=1000 mg/dL (Negative); Hyaline Casts NONE SEEN /LPF (0-2); Ketones 40 (Negative); Leukocyte Esterase Negative (Negative); Nitrite Negative (Negative); Protein,Urine Dip Negative (Negative); RBC 0-2 /HPF (0-5); Specific Gravity 1.025 (1.005-1.030)
[2024-01-02 17:46] LABS: ADD URINE CULTURE? YES (NO)
[2024-01-02] MEDS: Macrobid 100MG Capsule PO ONE (18:05)
[2024-01-02] MEDS ORDERED: Macrobid 100MG Capsule ONE (18:05)
[2024-01-02 18:11] VITALS: BP 134/77; PULSE 70; RESP 17
== END 2024-01-02 18:25 | disposition home or self-care (01) ==
LOC: ED 15:37
DX: N39.0 Urinary tract infection, site not specified (principal); E86.0 Dehydration; R19.7 Diarrhea, unspecified; E11.9 Type 2 diabetes mellitus without complications; Z79.84 Long term (current) use of oral hypoglycemic drugs; Z79.899 Other long term (current) drug therapy
CPT/HCPCS: 0241U; 36000; 36415; 80053; 81001; 81025; 84484; 85025; 87086; 99284; J1885; A9270-GY

== ENCOUNTER 2024-03-25 15:32 | Emergency (ER) | payer BC, OTHER ==
[2024-03-25 15:48] VITALS: TEMP 97.3
[2024-03-25 16:22] LABS: Absolute Neutrophil Ct (ANC) 4.04 x10^3/uL (1.56-6.13); BASOPHIL % 0.6 % (0.1-1.2); Basophil (Absolute #) 0.04 x10^3/uL (0.01-0.08); Eosinophil % 1.8 % (0.7-5.8); Eosinophil (Absolute #) 0.12 x10^3/uL (0.04-0.36); Hematocrit 39.3 % (34.1-44.9); Hemoglobin 13.4 g/dL (11.2-15.7); IMMATURE GRAN # 0.01 x10^3u/L (0.001-0.031); IMMATURE GRAN % 0.2 % (0.001-0.429); Lymphocytes % 28.7 % (19.3-51.7); Mean Cell Volume 81.9 fL (79.4-94.8); Mean Corpuscular Hemoglobin 27.9 pg (25.6-32.2); Mean Corpuscular Hgb Concent. 34.1 g/dL (32.2-35.5); Mean Platelet Volume 9.8 fL (9.4-12.3); Monocyte (Absolute #) 0.52 x10^3/uL (0.24-0.86); Monocytes % 7.8 % (4.7-12.5); Neutrophil % 60.9 % (34.0-71.1); Platelet Count 315 x10^3/uL (182-369); Red Cell Distribution Width 12.6 % (11.7-14.4); White Blood Count 6.6 x10^3/uL (3.98-10.04)
[2024-03-25 16:33] LABS: Appearance Cloudy (Clear); Bilirubin Negative (Negative); Blood Trace (Negative); Glucose, Urine >=1000 mg/dL (Negative); Ketones 80 (Negative); Leukocyte Esterase Small (Negative); Nitrite Negative (Negative); Ph 5.5 (4.6-8.0); Protein,Urine Dip 30 (Negative); Specific Gravity >=1.030 (1.005-1.030)
[2024-03-25 16:34] LABS: Bacteria Moderate /HPF (None Seen); Epithelial Cells Moderate /HPF (None Seen); Hyaline Casts None Seen /LPF (0-2)
[2024-03-25 16:36] VITALS: RESP 16
[2024-03-25 16:36] LABS: ALBUMIN 4.5 g/dL (3.5-5.0); ANION GAP 15.2 MEQ/L (5-15); BILIRUBIN,TOTAL 0.6 mg/dL (0.2-1.3); Calcium 9.7 mg/dL (8.4-10.2); Creatinine 1 0.61 mg/dL (0.52-1.04); EST GLOMERULAR FILTRATION RATE 118.8 ML/MIN; MAGNESIUM 1.6 mg/dL (1.6-2.3); Potassium 3.5 mmol/L (3.5-5.1); Total Protein 7.7 g/dL (6.3-8.2)
[2024-03-25 16:59] LABS: INFLUENZA A NEGATIVE (NEGATIVE); INFLUENZA B NEGATIVE (NEGATIVE); RESPIRATORY SYNCTIAL VIRUS NEGATIVE (NEGATIVE); SARS-CoV-2 Xpert Express NEGATIVE (NEGATIVE)
[2024-03-25 17:23] VITALS: PULSE 81; O2SAT 95
--- NOTE | 2024-03-25 18:14 | ERPHSYRPT ---
- History of Present Illness Source: patient Exam Limitations: no limitations Patient Subjective Stated Complaint: pt here for abd pain and nausea for 3 days now, she states she aslo has been lightheaded, no fever, able to eat and drink Triage Nursing Assessment: pt alert, walked in gait steady, resp easy, skin w/d/p.abd soft, no edema noted, Physician History: Patient's had some nausea and generalized malaise and fatigue. She has diabetes but has not been checking her sugars.She does not have any fever chills or diarrhea. She has no abdominal pain. She is not having respiratory symptoms. She has no chest pain. She has no neurological deficits.She appears to have some depression she is very flat affect. What she describes her counter depression symptoms 2. She says she has lack of appetite no sleeping some anhedonia and general malaise and fatigue. Her vital signs are stable and she is in no distress. Timing/Duration: week(s) Severity: mild Allergies/Adverse Reactions: nickel Allergy (Verified 03/25/24 15:49) amoxicillin Adverse Reaction (Severe, Verified 03/25/24 15:49) nausea and severe vomiting Home Medications: Metformin HCl [Metformin ER Gastric] 1 ea PO BID 03/11/21 [History] Venlafaxine HCl [Venlafaxine HCl ER] 75 mg PO HS 10/06/22 [History] Hx Tetanus, Diphtheria Vaccination/Date Given: No Hx Influenza Vaccination/Date Given: No Hx Pneumococcal Vaccination/Date Given: No Immunizations Up to Date: Yes Travel Risk - International Travel Have you traveled outside of the country in past 3 weeks: No - Emerging Infectious Disease Are you exhibiting symptoms associated with any current EIDs: Yes Symptoms: Abdominal Pain - Review of Systems Constitutional: Malaise, Weakness Eyes: No Symptoms Ears, Nose, & Throat: No Symptoms Respiratory: No Symptoms Cardiac: No Symptoms Abdominal/Gastrointestinal: Nausea Genitourinary Symptoms: No Symptoms Musculoskeletal: No Symptoms Skin: No Symptoms Neurological: No Symptoms Psychological: No Symptoms All Other Systems: Reviewed and Negative - Past Medical History Pertinent Past Medical History: Yes Neurological History: No Pertinent History ENT History: No Pertinent History Cardiac History: No Pertinent History Respiratory History: No Pertinent History Endocrine Medical History: No Pertinent History Musculoskeletal History: No Pertinent History GI Medical History: No Pertinent History History: No Pertinent History Psycho-Social History: Anxiety, Depression Female Reproductive Disorders: No Pertinent History - Past Surgical History Past Surgical History: Yes Neuro Surgical History: No Pertinent History Cardiac: No Pertinent History Respiratory: No Pertinent History Gastrointestinal: No Pertinent History Genitourinary: No Pertinent History Musculoskeletal: No Pertinent History Female Surgical History: Section - Female History Hx Last Menstrual Period: last week Hx Now: No - Social History Smoking Status: Former smoker How long have you smoked: 1 Exposure to second hand smoke: Yes Drug Use: none Patient Lives Alone: No - Social Determinants of Health Will the patient participate in the screening: Yes Do you worry about a steady place to live?: Yes Do you have any problems with any of the following?: No known problems In the past 12 months,have you had to go without utilities?: Yes Transportation Issues: Yes Has anyone in your support network made you feel unsafe?: No Have you or anyone in your house had to go without enough: Yes - Nursing Vital Signs Nursing Vital Signs: Initial Vital Signs Pulse Rate 70 03/25/24 15:45 Respiratory Rate 18 03/25/24 15:45 Blood Pressure 127/81 03/25/24 15:45 O2 Sat by Pulse Oximetry 95 03/25/24 15:45 Pain Scale Pain Intensity 4 - Physical Exam General Appearance: no apparent distress Eye Exam: PERRL/EOMI, eyes nml inspection Respiratory Exam: normal breath sounds, chest tenderness, lungs clear Cardiovascular Exam: regular rate/rhythm, normal heart sounds Gastrointestinal/Abdomen Exam: soft, normal bowel sounds Extremity Exam: normal inspection, normal range of motion Neurologic Exam: alert, oriented x 3, cooperative, 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, normal mood/affect Skin Exam: normal color, warm, dry SpO2 Interpretation: normal SpO2: 95 Ordered Tests: Active Orders 24 hr Category Date Time Status ACO SDOH Referral ONCE Cons 03/25/24 15:54 Active CBC W DIFF Stat Lab 03/25/24 16:16 Completed CMP Stat Lab 03/25/24 16:16 Completed CULTURE,URINE Stat Lab 03/25/24 16:03 Received MAG [MAGNESIUM] Stat Lab 03/25/24 16:16 Completed UA W/RFX UR CULTURE Stat Lab 03/25/24 16:03 Completed Lab/Rad Data: Laboratory Result Diagrams 03/25/24 16:16 03/25/24 16:16 Laboratory Results 03/25/24 03/25/24 03/25/24 Range/Units 16:18 16:16 16:16 WBC 6.6 (3.98-10.04) x10^3/uL RBC 4.80 (3.93-5.22) x10^6/uL Hgb 13.4 (11.2-15.7) g/dL Hct 39.3 (34.1-44.9) % MCV 81.9 (79.4-94.8) fL MCH 27.9 (25.6-32.2) pg MCHC 34.1 (32.2-35.5) g/dL RDW 12.6 (11.7-14.4) % Plt Count 315 (182-369) x10^3/uL MPV 9.8 (9.4-12.3) fL Gran % 60.9 (34.0-71.1) % Immature Gran % (Auto) 0.2 (0.001-0.429) % Nucleat RBC Rel Count 0.0 (0.00-0.2) % Eos # (Auto) 0.12 (0.04-0.36) x10^3/uL Immature Gran # (Auto) 0.01 (0.001-0.031) x10^3u/L Absolute Lymphs (auto) 1.90 (1.18-3.74) x10^3/uL Absolute Monos (auto) 0.52 (0.24-0.86) x10^3/uL Absolute Nucleated RBC 0.00 (0.00-0.012) x10^3u/L Lymphocytes % 28.7 (19.3-51.7) % Monocytes % 7.8 (4.7-12.5) % Eosinophils % 1.8 (0.7-5.8) % Basophils % 0.6 (0.1-1.2) % Absolute Granulocytes 4.04 (1.56-6.13) x10^3/uL Basophils # 0.04 (0.01-0.08) x10^3/uL Sodium 139 (135-145) mmol/L Potassium 3.5 (3.5-5.1) mmol/L Chloride 106 (98-107) mmol/L Carbon Dioxide 22 (22-30) mmol/L Anion Gap 15.2 H (5-15) MEQ/L BUN 23 H (7-17) mg/dL Creatinine 0.61 (0.52-1.04) mg/dL Estimated GFR 118.8 ML/MIN Glucose 189 H (74-106) mg/dL Calcium 9.7 (8.4-10.2) mg/dL Magnesium 1.6 (1.6-2.3) mg/dL Total Bilirubin 0.60 (0.2-1.3) mg/dL AST 28 (14-36) U/L ALT 35 (0-35) U/L Alkaline Phosphatase 83 (38-126) U/L Serum Total Protein 7.7 (6.3-8.2) g/dL Albumin 4.5 (3.5-5.0) g/dL Urine Color (Yellow) Urine Appearance (Clear) Urine pH (4.6-8.0) Ur Specific Sayre (1.005-1.030) Urine Protein (Negative) Urine Glucose (UA) (Negative) mg/dL Urine Ketones (Negative) Urine Blood (Negative) Urine Nitrite (Negative) Urine Bilirubin (Negative) Urine Urobilinogen (0.2) mg/dL Ur Leukocyte Esterase (Negative) U Hyaline Cast (Auto) (0-2) /LPF Urine Microscopic RBC (0-5) /HPF Urine Microscopic WBC (0-5) /HPF Ur Epithelial Cells (None Seen) /HPF Urine Bacteria (None Seen) /HPF Urine Culture Reflexed (NO) Influenza Type A Ag NEGATIVE (NEGATIVE) Influenza Type B Ag NEGATIVE (NEGATIVE) RSV (PCR) NEGATIVE (NEGATIVE) SARS-CoV-2 (PCR) NEGATIVE (NEGATIVE) 03/25/24 Range/Units 16:03 WBC (3.98-10.04) x10^3/uL RBC (3.93-5.22) x10^6/uL Hgb (11.2-15.7) g/dL Hct (34.1-44.9) % MCV (79.4-94.8) fL MCH (25.6-32.2) pg MCHC (32.2-35.5) g/dL RDW (11.7-14.4) % Plt Count (182-369) x10^3/uL MPV (9.4-12.3) fL Gran % (34.0-71.1) % Immature Gran % (Auto) (0.001-0.429) % Nucleat RBC Rel Count (0.00-0.2) % Eos # (Auto) (0.04-0.36) x10^3/uL Immature Gran # (Auto) (0.001-0.031) x10^3u/L Absolute Lymphs (auto) (1.18-3.74) x10^3/uL Absolute Monos (auto) (0.24-0.86) x10^3/uL Absolute Nucleated RBC (0.00-0.012) x10^3u/L Lymphocytes % (19.3-51.7) % Monocytes % (4.7-12.5) % Eosinophils % (0.7-5.8) % Basophils % (0.1-1.2) % Absolute Granulocytes (1.56-6.13) x10^3/uL Basophils # (0.01-0.08) x10^3/uL Sodium (135-145) mmol/L Potassium (3.5-5.1) mmol/L Chloride (98-107) mmol/L Carbon Dioxide (22-30) mmol/L Anion Gap (5-15) MEQ/L BUN (7-17) mg/dL Creatinine (0.52-1.04) mg/dL Estimated GFR ML/MIN Glucose (74-106) mg/dL Calcium (8.4-10.2) mg/dL Magnesium (1.6-2.3) mg/dL Total Bilirubin (0.2-1.3) mg/dL AST (14-36) U/L ALT (0-35) U/L Alkaline Phosphatase (38-126) U/L Serum Total Protein (6.3-8.2) g/dL Albumin (3.5-5.0) g/dL Urine Color Yellow (Yellow) Urine Appearance Cloudy A (Clear) Urine pH 5.5 (4.6-8.0) Ur Specific Sayre >=1.030 A (1.005-1.030) Urine Protein 30 (Negative) Urine Glucose (UA) >=1000 A (Negative) mg/dL Urine Ketones 80 A (Negative) Urine Blood Trace (Negative) Urine Nitrite Negative (Negative) Urine Bilirubin Negative (Negative) Urine Urobilinogen 1.0 A (0.2) mg/dL Ur Leukocyte Esterase Small A (Negative) U Hyaline Cast (Auto) None Seen (0-2) /LPF Urine Microscopic RBC 3-5 (0-5) /HPF Urine Microscopic WBC 6-10 A (0-5) /HPF Ur Epithelial Cells Moderate A (None Seen) /HPF Urine Bacteria Moderate A (None Seen) /HPF Urine Culture Reflexed YES (NO) Influenza Type A Ag (NEGATIVE) Influenza Type B Ag (NEGATIVE) RSV (PCR) (NEGATIVE) SARS-CoV-2 (PCR) (NEGATIVE) - Progress Progress: unchanged Progress Note: Patient stable throughout stay. All of her labs look good. She did have a UTI. Her sugars were little bit elevated. I think she has a UTI. Her sugars could be elevated at home causing some symptoms like this or could be depression. She did have a depressed affect and describes symptoms of depression. At this time and go to treat the UTI have her watch her sugars and follow-up with her primary doctor. Will going to give her Bactrim. 03/25/24 18:11 Medical Desision Making - Diagnostic Testing Diagnostic test were ordered, analyzed, and reviewed by me: Yes - Risk of complications Minimal Risk: Minimal risk of morbidity - Departure Departure Disposition: Home Clinical Impression: Nausea and vomiting, UTI (urinary tract infection) Condition: Stable Critical Care Time: No Referrals: FARSHAD PICHARDO [Primary Care Provider] - Follow up/PCP as directed Instructions: Urinary tract infections in adults
[2024-03-25 18:19] VITALS: BP 130/85
== END 2024-03-25 18:21 | disposition home or self-care (01) ==
LOC: ED 15:32
DX: N39.0 Urinary tract infection, site not specified (principal); R11.2 Nausea with vomiting, unspecified; R53.83 Other fatigue; E11.9 Type 2 diabetes mellitus without complications; Z79.84 Long term (current) use of oral hypoglycemic drugs; Z79.899 Other long term (current) drug therapy; Z59.819 Housing instability, housed unspecified; Z59.12 Inadequate housing utilities; Z59.82 Transportation insecurity; Z59.41 Food insecurity
CPT/HCPCS: 0241U; 36415; 80053; 81001; 83735; 85025; 87086; 99283